=== PATIENT | female | born 1960 | race Caucasian/White ===

== ENCOUNTER → 2019-09-06 | Outpatient (CLI) | payer OTHER ==
--- NOTE | 2019-09-06 11:11 | XR ---
EXAMINATION TYPE: XR shoulder complete RT, XR humerus RT DATE OF EXAM: 09/06/2019 CLINICAL HISTORY: Sudden pain. TECHNIQUE: Three views of the right shoulder are obtained. 2 views right humerus. COMPARISON: None. FINDINGS: Demineralization is present. There is no acute fracture/dislocation evident in the right sh oulder. Mild to moderate narrowing at the acromioclavicular and glenohumeral joints. No significant spurring. Distal acromion morphology unremarkable. The visualized ribs are intact and unremarkable. Images of right humerus show no acute fracture. No suspicious lytic or sclerotic lesion. Overlying so ft tissue are unremarkable. Visualized elbow joint within normal limits. IMPRESSION: As above.
== END | disposition home or self-care (01) ==
LOC: RADXRMAIN 09:54
PROVIDERS: ATTEND Family Medicine
DX: M25.811 Other specified joint disorders, right shoulder (principal)

== ENCOUNTER → 2020-02-05 | Outpatient (CLI) | payer OTHER ==
--- NOTE | 2020-02-05 23:55 | MR ---
EXAMINATION TYPE: MR shoulder RT wo con DATE OF EXAM: 02/05/2020 COMPARISON: None HISTORY: Right shoulder pain. Multiplanar multiecho imaging of the right shoulder was performed with no contrast. The biceps tendon is intact. Subscapularis tendon is intact Radha appear intact. There is no evidence of a fracture. There is no subacromial impingement. AC join t is intact. There is thickening and increased signal at the supraspinatus tendon. There is no retraction. There a ppears to be full-thickness defect in the supraspinatus tendon on image 13 of the T2 coronal images. Humeral head is intact. I see no focal bone destruction. IMPRESSION: Thickening and increased signal in the supraspinatus tendon with full-thickness defect related to rot ator cuff tear. No retraction. No fracture. No evidence of any significant subacromial impingement.
== END | disposition home or self-care (01) ==
LOC: RADMRIMAIN 20:55
PROVIDERS: ATTEND Family Medicine
DX: R93.7 Abnormal findings on diagnostic imaging of other parts of musculoskeletal system (principal)

== ENCOUNTER 2020-03-01 21:51 | Observation (INO) | payer OTHER ==
[2020-03-01] MEDS ORDERED: methylPREDNISolone SOD SUCCI 125 MG/2 ML VIAL IV STA (22:20)
[2020-03-01] MEDS ORDERED: ALBUTEROL HFA INHALER INHALATION STA (22:20)
[2020-03-01] MEDS ORDERED: SODIUM CHLORIDE 0.9% 1,000 ML IV STA (22:20)
[2020-03-01] MEDS ORDERED: ONDANSETRON 4 MG/2 ML VIAL IVP STA (22:21)
--- NOTE | 2020-03-01 22:35 | XR ---
EXAMINATION TYPE: XR chest 2V DATE OF EXAM: 03/01/2020 COMPARISON: NONE HISTORY: Vomiting. Difficulty breathing. TECHNIQUE: 2 views FINDINGS: Heart and mediastinum are normal. Lungs are clear. Diaphragm is normal. Bony thorax appears normal. IMPRESSION: Normal chest.
[2020-03-01 22:36] LABS: Basophils # (A) 0.1 k/uL (0-0.2); Basophils % (A) 1 %; Eosinophils # (A) 0.1 k/uL (0-0.7); Eosinophils % (A) 1 %; HCT 45.4 % (34.0-46.0); HGB 15.3 gm/dL (11.4-16.0); Lymphocytes # (A) 2.4 k/uL (1.0-4.8); Lymphocytes % (A) 30 %; MCH 32.3 pg (25.0-35.0); MCHC 33.7 g/dL (31.0-37.0); MCV 96.1 fL (80.0-100.0); Mean Platelet Volume 8.4; Monocytes # (A) 0.5 k/uL (0-1.0); Monocytes % (A) 6 %; Neutrophils # (A) 4.9 k/uL (1.3-7.7); Neutrophils % (A) 61 %; Platelet Count 253 k/uL (150-450); RBC 4.72 m/uL (3.80-5.40); RDW 12.7 % (11.5-15.5); WBC 7.9 k/uL (3.8-10.6)
[2020-03-01 22:47] LABS: INR 0.9 (<1.2); Partial Thromboplastin Time 26.5 sec (22.0-30.0); Prothrombin Time 10.1 sec (9.0-12.0)
[2020-03-01 22:48] LABS: Albumin 4.4 g/dL (3.5-5.0); Calcium 9.8 mg/dL (8.4-10.2); Magnesium 1.8 mg/dL (1.6-2.3); Potassium 3.6 mmol/L (3.5-5.1); Total Bilirubin 0.4 mg/dL (0.2-1.3); Total Protein 7.2 g/dL (6.3-8.2)
--- NOTE | 2020-03-01 23:09 | ED ---
General Adult HPI - General Chief complaint: Shortness of Breath Stated complaint: SOB,Vomiting Time Seen by Provider: 03/01/20 22:08 Source: patient Mode of arrival: wheelchair Limitations: no limitations - History of Present Illness Initial comments: 59 year-old female patient presents to the emergency department for evaluation of shortness of breath, nausea, vomiting, and diarrhea. Symptoms have been present for the last two days. She denies fever or chills. Denies any chest pain or abdominal pain. States that she has had cough with sputum production. Increased shortness of breath especially with activity. She reports vomiting for the last two days, unable to keep down any food or fluids. She does admit to smoking cigarettes. Reports history of chronic bronchitis, not currently on any medications. She denies cardiac disease history. Denies any swelling in her lower extremities. Patient denies any recent rash, constipation, back pain, numbness, tingling, dizziness, weakness, hematuria, dysuria, urinary urgency, urinary frequency, headache, visual changes, or any other complaints. - Related Data Allergies Allergy/AdvReac Type Severity Reaction Status Date / Time cephalexin [From Keflex] Allergy Rash/Hives Verified 03/01/20 21:58 Penicillins Allergy Rash/Hives Verified 03/01/20 21:58 Review of Systems ROS Statement: Those systems with pertinent positive or pertinent negative responses have been documented in the HPI. ROS Other: All systems not noted in ROS Statement are negative. Past Medical History Past Medical History: GERD/Reflux, Hypertension History of Any Multi-Drug Resistant Organisms: None Reported Past Surgical History: Section, Cholecystectomy, Hysterectomy, Tonsillectomy Past Psychological History: Anxiety, Depression Smoking Status: Current every day smoker Past Alcohol Use History: None Reported Past Drug Use History: Marijuana General Exam Limitations: no limitations General appearance: alert, in no apparent distress, other (This is a well- developed, well-nourished adult female patient in no acute distress. Vital signs upon presentation are temperature 98.2F, pulse 103, respirations 26, blood pressure 130/80, pulse ox 92% on room air.) Eye exam: Present: normal appearance, PERRL, EOMI. Absent: scleral icterus, conjunctival injection, periorbital swelling ENT exam: Present: normal exam, normal oropharynx, mucous membranes moist Respiratory exam: Present: respiratory distress (mild), wheezes (Expiratory wheezing noted in the posterior lung quiñonez), other (Tachypnea). Absent: normal lung sounds bilaterally, rales, rhonchi, stridor, accessory muscle use Cardiovascular Exam: Present: normal rhythm, tachycardia, normal heart sounds. Absent: systolic murmur, diastolic murmur, rubs, gallop, clicks GI/Abdominal exam: Present: soft, normal bowel sounds. Absent: distended, tenderness, guarding, rebound, rigid Neurological exam: Present: alert, oriented X3, CN II-XII intact Psychiatric exam: Present: normal affect, normal mood Skin exam: Present: warm, dry, intact, normal color. Absent: rash Course Vital Signs 03/01/20 03/01/20 03/01/20 21:55 22:07 23:31 Temperature 98.3 F Pulse Rate 103 H 100 Respiratory 26 H 28 H Rate Blood Pressure 130/88 O2 Sat by Pulse 92 L Oximetry 03/01/20 03/01/20 23:32 23:37 Temperature Pulse Rate 72 104 H Respiratory 18 Rate Blood Pressure 110/71 O2 Sat by Pulse 100 Oximetry EKG Findings - EKG Comments: EKG Findings:: EKG obtained at 2211 shows sinus tachycardia. Ventricular rate of 105, [place] interval 150, QRS duration 66, QT 344, QTC 454. No evidence of ST elevation or depression. Medical Decision Making - Medical Decision Making 59-year-old female patient presents to the emergency department today for evaluation of shortness of breath and vomiting for the last 2 days. Upon arrival patient was tachypnea, with expiratory wheezing noted in the posterior lung quiñonez. She did have oxygen saturation at 92% on room air. She was tachycardic at 105. EKG showed sinus tachycardia. Chest x-ray was negative. She tested negative for COVID-19. Labs are unremarkable. She was given IV fluids and Zofran. She is also given breathing treatment and IV steroids. Upon reevaluation she reports minimal improvement in dyspnea. States remains slightly nauseated and reports dizziness. She'll be admitted to the hospital for further evaluation, continued breathing treatments and steroids. She is agreeable this plan. - Lab Data Result diagrams: 03/01/20 22:22 03/01/20 22:22 Lab Results 03/01/20 03/01/20 03/01/20 Range/Units 22:22 22:22 22:22 WBC 7.9 (3.8-10.6) k/uL RBC 4.72 (3.80-5.40) m/uL Hgb 15.3 (11.4-16.0) gm/dL Hct 45.4 (34.0-46.0) % MCV 96.1 (80.0-100.0) fL MCH 32.3 (25.0-35.0) pg MCHC 33.7 (31.0-37.0) g/dL RDW 12.7 (11.5-15.5) % Plt Count 253 (150-450) k/uL MPV 8.4 Neutrophils % 61 % Lymphocytes % 30 % Monocytes % 6 % Eosinophils % 1 % Basophils % 1 % Neutrophils # 4.9 (1.3-7.7) k/uL Lymphocytes # 2.4 (1.0-4.8) k/uL Monocytes # 0.5 (0-1.0) k/uL Eosinophils # 0.1 (0-0.7) k/uL Basophils # 0.1 (0-0.2) k/uL PT 10.1 (9.0-12.0) sec INR 0.9 (<1.2) APTT 26.5 (22.0-30.0) sec Sodium 141 (137-145) mmol/L Potassium 3.6 (3.5-5.1) mmol/L Chloride 113 H (98-107) mmol/L Carbon Dioxide 20 L (22-30) mmol/L Anion Gap 8 mmol/L BUN 20 H (7-17) mg/dL Creatinine 0.93 (0.52-1.04) mg/dL Est GFR (CKD-EPI)AfAm 78 (>60 ml/min/1.73 sqM) Est GFR (CKD-EPI)NonAf 68 (>60 ml/min/1.73 sqM) Glucose 142 H (74-99) mg/dL Plasma Lactic Acid Brayan (0.7-2.0) mmol/L Calcium 9.8 (8.4-10.2) mg/dL Magnesium 1.8 (1.6-2.3) mg/dL Total Bilirubin 0.4 (0.2-1.3) mg/dL AST 27 (14-36) U/L ALT 10 (4-34) U/L Alkaline Phosphatase 60 (38-126) U/L Troponin I (0.000-0.034) ng/mL Total Protein 7.2 (6.3-8.2) g/dL Albumin 4.4 (3.5-5.0) g/dL Coronavirus (PCR) (Not Detectd) 03/01/20 03/01/20 03/01/20 Range/Units 22:22 22:22 22:22 WBC (3.8-10.6) k/uL RBC (3.80-5.40) m/uL Hgb (11.4-16.0) gm/dL Hct (34.0-46.0) % MCV (80.0-100.0) fL MCH (25.0-35.0) pg MCHC (31.0-37.0) g/dL RDW (11.5-15.5) % Plt Count (150-450) k/uL MPV Neutrophils % % Lymphocytes % % Monocytes % % Eosinophils % % Basophils % % Neutrophils # (1.3-7.7) k/uL Lymphocytes # (1.0-4.8) k/uL Monocytes # (0-1.0) k/uL Eosinophils # (0-0.7) k/uL Basophils # (0-0.2) k/uL PT (9.0-12.0) sec INR (<1.2) APTT (22.0-30.0) sec Sodium (137-145) mmol/L Potassium (3.5-5.1) mmol/L Chloride (98-107) mmol/L Carbon Dioxide (22-30) mmol/L Anion Gap mmol/L BUN (7-17) mg/dL Creatinine (0.52-1.04) mg/dL Est GFR (CKD-EPI)AfAm (>60 ml/min/1.73 sqM) Est GFR (CKD-EPI)NonAf (>60 ml/min/1.73 sqM) Glucose (74-99) mg/dL Plasma Lactic Acid Brayan 1.1 (0.7-2.0) mmol/L Calcium (8.4-10.2) mg/dL Magnesium (1.6-2.3) mg/dL Total Bilirubin (0.2-1.3) mg/dL AST (14-36) U/L ALT (4-34) U/L Alkaline Phosphatase (38-126) U/L Troponin I <0.012 (0.000-0.034) ng/mL Total Protein (6.3-8.2) g/dL Albumin (3.5-5.0) g/dL Coronavirus (PCR) Not Detected (Not Detectd) - Radiology Data Radiology results: report reviewed, image reviewed Two-view x-ray of the chest is obtained. Report is reviewed in its entirety. Impression by Dr. Gao shows normal chest. Disposition Clinical Impression: COPD exacerbation, Vomiting Disposition: ADMITTED IP TO THIS [facility] Condition: Serious Referrals: Anne-Marie Gordon MD [Primary Care Provider] - 1-2 days Decision to Admit Reason: Admit from EC Decision Date: 03/01/20 Decision Time: 23:57
[2020-03-01] MEDS ORDERED: ALBUTEROL NEB (CONC) 2.5 MG/0.5 ML INHALATION STA (23:11)
[2020-03-01] MEDS ORDERED: IPRATROPIUM-ALBUTEROL 3 ML NEB INHALATION STA (23:11)
[2020-03-01] MEDS ORDERED: IPRATROPIUM-ALBUTEROL 3 ML NEB INHALATION PRN (23:55)
[2020-03-02] MEDS: methylPREDNISolone SOD SUCCI 125 MG/2 ML VIAL IV SCH ×3 (02:06→13:25)
[2020-03-02] MEDS: SODIUM CHLORIDE 0.9% 1,000 ML IV SCH ×2 (05:29→13:37)
[2020-03-02] MEDS: IPRATROPIUM-ALBUTEROL 3 ML NEB INHALATION SCH ×4 (08:25→20:15)
[2020-03-02] MEDS: ONDANSETRON 4 MG/2 ML VIAL IVP PRN ×2 (09:09→20:50)
[2020-03-02] MEDS ORDERED: ONDANSETRON ODT 4 MG TAB PO PRN (13:02)
[2020-03-02] MEDS ORDERED: BACLOFEN 10 MG TAB PO PRN (13:02)
[2020-03-02] MEDS ORDERED: NON FORMULARY DRUG (Omeprazole Magnesium [Prilosec Otc] 20 MG Tablet.Dr) PO SCH (13:15)
[2020-03-02] MEDS: PANTOPRAZOLE 40 MG/10 ML VIAL IVP SCH ×2 (13:34→22:11)
[2020-03-02] MEDS: busPIRone HCl 10 MG TAB PO SCH (13:34)
[2020-03-02] MEDS: DICYCLOMINE 20 MG TAB PO SCH ×2 (13:34→22:11)
--- NOTE | 2020-03-02 14:36 | P.HPIM ---
History of Present Illness Patient came in with compensative or shortness of breath nausea vomiting diarrhea and generalized body aches fever chills. Patient was initially believed to have Covid, although PCR is negative chest x-ray did not show any significant abnormality chest x-ray is clear. Patient does have nicotine abuse history does have history of COPD as an use any oxygen at home. Patient was comparing of her sputum production but it was clear. Patient was started on IV steroids which will be switched to oral patient does have extensive history of gastroesophageal reflux disease and severe esophagitis. Patient is presently requiring minimal oxygen at this time saturating well. Review of Systems REVIEW OF SYSTEMS: CONSTITUTIONAL: No fever, no malaise, no fatigue. HEENT: No recent visual problems or hearing problems. Denied any sore throat. CARDIOVASCULAR: No chest pain, orthopnea, PND, no palpitations, no syncope. PULMONARY: no hemoptysis. GASTROINTESTINAL: No diarrhea, no nausea, no vomiting, no abdominal pain. NEUROLOGICAL: No headaches, no weakness, no numbness. HEMATOLOGICAL: Denies any bleeding or petechiae. GENITOURINARY: Denies any burning micturition, frequency, or urgency. MUSCULOSKELETAL/RHEUMATOLOGICAL: Denies any joint pain, swelling, or any muscle pain. ENDOCRINE: Denies any polyuria or polydipsia. The rest of the 14-point review of systems is negative. Past Medical History Past Medical History: GERD/Reflux, Hypertension History of Any Multi-Drug Resistant Organisms: None Reported Past Surgical History: Section, Cholecystectomy, Hysterectomy, Tonsillectomy Past Anesthesia/Blood Transfusion Reactions: No Reported Reaction Past Psychological History: Anxiety, Depression Smoking Status: Current every day smoker Past Alcohol Use History: None Reported Past Drug Use History: Marijuana Medications and Allergies Home Medications Medication Instructions Recorded Confirmed Type Atorvastatin Calcium [Lipitor] 10 mg PO DAILY 03/02/20 03/02/20 History Baclofen [Lioresal] 10 mg PO TID PRN 03/02/20 03/02/20 History Dicyclomine HCl 20 mg PO TID 03/02/20 03/02/20 History Ergocalciferol (Vitamin D2) 1,250 mcg PO MO 03/02/20 03/02/20 History [Vitamin D2 (50,000 units)] Fenofibrate Nanocrystallized 145 mg PO DAILY 03/02/20 03/02/20 History [Fenofibrate] Losartan Potassium [Cozaar] 25 mg PO DAILY 03/02/20 03/02/20 History Omeprazole Magnesium [PriLOSEC OTC] 20 mg PO QAM 03/02/20 03/02/20 History Ondansetron [Zofran ODT] 4 mg PO Q12HR PRN 03/02/20 03/02/20 History Pramipexole [Mirapex] 0.125 mg PO HS 03/02/20 03/02/20 History busPIRone HCl [Buspar] 10 mg PO Q8H 03/02/20 03/02/20 History Allergies Allergy/AdvReac Type Severity Reaction Status Date / Time cephalexin [From Keflex] Allergy Rash/Hives Verified 03/02/20 09:27 Penicillins Allergy Rash/Hives Verified 03/02/20 09:27 Physical Exam Vitals: Vital Signs Temp Pulse Pulse Resp BP BP Pulse Ox 03/02/20 11:42 97.4 F L 59 L 17 99/65 96 03/02/20 11:25 88 03/02/20 11:17 88 03/02/20 10:24 95/62 03/02/20 08:35 92 03/02/20 08:26 92 03/02/20 08:25 90 16 03/02/20 05:34 91/54 03/02/20 04:03 97.6 F 90 16 71/40 98 03/02/20 02:00 97.9 F 84 16 95/62 97 03/01/20 23:37 104 H 03/01/20 23:32 72 18 110/71 100 03/01/20 23:31 100 03/01/20 22:07 28 H 03/01/20 21:55 98.3 F 103 H 26 H 130/88 92 L Intake and Output 03/01/20 03/02/20 03/02/20 22:59 06:59 14:59 Intake Total 300 Balance 300 Intake: Intake, IV Titration 300 Amount Sodium Chloride 0.9% 1, 300 000 ml @ 100 mls/hr IV . Q10H [facility] Rx#:[id number] Other: Voiding Method Toilet # Voids 1 1 Weight 55.338 kg 55.338 kg PHYSICAL EXAMINATION: GENERAL: The patient is alert and oriented x3, not in any acute distress. Well developed, well nourished. HEENT: Pupils are round and equally reacting to light. EOMI. No scleral icterus. No conjunctival pallor. Normocephalic, atraumatic. No pharyngeal erythema. No thyromegaly. CARDIOVASCULAR: S1 and S2 present. No murmurs, rubs, or gallops. PULMONARY: Bilateral rhonchi with mild expiratory wheezing. ABDOMEN: Soft, nontender, nondistended, normoactive bowel sounds. No palpable organomegaly. MUSCULOSKELETAL: No joint swelling or deformity. EXTREMITIES: No cyanosis, clubbing, or pedal edema. NEUROLOGICAL: Gross neurological examination did not reveal any focal deficits. SKIN: No rashes. Results CBC & Chem 7: 03/01/20 22:22 03/01/20 22:22 Labs: Abnormal Lab Results - Last 24 Hours (Table) 03/01/20 Range/Units 22:22 Chloride 113 H (98-107) mmol/L Carbon Dioxide 20 L (22-30) mmol/L BUN 20 H (7-17) mg/dL Glucose 142 H (74-99) mg/dL Thrombosis Risk Factor Assmnt - Choose All That Apply Any of the Below Risk Factors Present?: Yes Each Factor Represents 1 point: Abnormal pulmonary function (COPD), Age 41-60 years Each Risk Factor Represents 2 Points: Age 61-74 years Thrombosis Risk Factor Assessment Total Risk Factor Score: 4 Thrombosis Risk Factor Assessment Level: Moderate Risk Assessment and Plan Plan: -COPD exacerbation: Nicotine cessation counseling was provided patient will be continued on oral prednisone and continue with inhalational treatments. No evidence of Bactrim bronchitis patient will not be started on any antibiotics. -Severe gastroesophageal reflux disease and esophagitis patient will be started on Protonix twice daily -Nausea vomiting the diarrhea and generalized body aches probably viral gastroenteritis -Hypertension -Depression -DVT prophylaxis: Early ambulation
--- NOTE | 2020-03-02 14:42 | P.CNPUL ---
History of Present Illness Consult date: 03/02/20 Requesting physician: Wil Weir Reason for consult: dyspnea, cough, COPD Chief complaint: Shortness of breath. History of present illness: 59-year-old female who presented to the emergency department on March 01 at 2151. The patient presented with shortness of breath. She apparently been having shortness of breath for some time. Maybe for 2 or 3 days prior to admission and it wasn't getting any better. In addition, according to the ER rocío, she was having nausea, vomiting, and diarrhea. She denied any fever or chills or chest pain or abdominal pain. She was coughing and producing some phlegm. Her shortness of breath was worse on exertion. She apparently was not able to keep any food or fluids down for 2 days prior to admission. She is a heavy smoker having smoked for more than 40 years. She currently still smokes. She has never seen a lung doctor, and never been formally diagnosed with COPD. She denies any cardiac history. Currently, she is resting comfortably in her room, on a couple of liters of nasal O2. She's feeling a bit better than she did when she first came in. Still very short of breath. Her vital signs included temperature 97.4, heart rate 59, respiratory rate 17, blood pressure 99/65, and a saturation of 96% on 2 L. Her chest x-ray is negative. She apparently has a history of gastroesophageal reflux disease, and hypertension. She is a current every day smoker and has used marijuana in the past. She also suffers from hyperlipidemia, anxiety, depression, and vitamin D deficiency. Review of Systems REVIEW OF SYSTEMS: CONSTITUTIONAL: [Negative.] NEUROLOGIC: [ Negative.] HEENT: [ Negative.] CARDIAC: [Negative.] PULMONARY: Shortness of breath, wheezing, cough, phlegm production. GI: Nausea, vomiting, diarrhea. : [Negative.] RHEUMATOLOGIC: [ Negative.] IMMUNOLOGIC: [ Negative.] ENDOCRINE: [Negative. ] DERMATOLOGIC: [Negative.] Past Medical History Past Medical History: GERD/Reflux, Hypertension History of Any Multi-Drug Resistant Organisms: None Reported Past Surgical History: Section, Cholecystectomy, Hysterectomy, Tonsillectomy Past Anesthesia/Blood Transfusion Reactions: No Reported Reaction Past Psychological History: Anxiety, Depression Smoking Status: Current every day smoker Past Alcohol Use History: None Reported Past Drug Use History: Marijuana Medications and Allergies Home Medications Medication Instructions Recorded Confirmed Type Atorvastatin Calcium [Lipitor] 10 mg PO DAILY 03/02/20 03/02/20 History Baclofen [Lioresal] 10 mg PO TID PRN 03/02/20 03/02/20 History Dicyclomine HCl 20 mg PO TID 03/02/20 03/02/20 History Ergocalciferol (Vitamin D2) 1,250 mcg PO MO 03/02/20 03/02/20 History [Vitamin D2 (50,000 units)] Fenofibrate Nanocrystallized 145 mg PO DAILY 03/02/20 03/02/20 History [Fenofibrate] Losartan Potassium [Cozaar] 25 mg PO DAILY 03/02/20 03/02/20 History Omeprazole Magnesium [PriLOSEC OTC] 20 mg PO QAM 03/02/20 03/02/20 History Ondansetron [Zofran ODT] 4 mg PO Q12HR PRN 03/02/20 03/02/20 History Pramipexole [Mirapex] 0.125 mg PO HS 03/02/20 03/02/20 History busPIRone HCl [Buspar] 10 mg PO Q8H 03/02/20 03/02/20 History Allergies Allergy/AdvReac Type Severity Reaction Status Date / Time cephalexin [From Keflex] Allergy Rash/Hives Verified 03/02/20 09:27 Penicillins Allergy Rash/Hives Verified 03/02/20 09:27 Physical Exam Osteopathic Statement: *. No significant issues noted on an osteopathic structural exam other than those noted in the History and Physical/Consult. Vitals: Vital Signs Temp Pulse Pulse Resp BP BP Pulse Ox 03/02/20 11:42 97.4 F L 59 L 17 99/65 96 03/02/20 11:25 88 03/02/20 11:17 88 03/02/20 10:24 95/62 03/02/20 08:35 92 03/02/20 08:26 92 03/02/20 08:25 90 16 03/02/20 05:34 91/54 03/02/20 04:03 97.6 F 90 16 71/40 98 03/02/20 02:00 97.9 F 84 16 95/62 97 03/01/20 23:37 104 H 03/01/20 23:32 72 18 110/71 100 03/01/20 23:31 100 03/01/20 22:07 28 H 03/01/20 21:55 98.3 F 103 H 26 H 130/88 92 L Intake and Output 03/01/20 03/02/20 03/02/20 22:59 06:59 14:59 Intake Total 300 Balance 300 Intake: Intake, IV Titration 300 Amount Sodium Chloride 0.9% 1, 300 000 ml @ 100 mls/hr IV . Q10H [facility] Rx#:[id number] Other: Voiding Method Toilet # Voids 1 1 Weight 55.338 kg 55.338 kg No acute respiratory distress, oriented 3. The patient is currently on O2 at 2 L by nasal cannula. HEENT examination is grossly unremarkable. Mucous membranes are moist. No oral lesions. Neck supple. Full range of motion. No adenopathy thyromegaly or neck vein distention. Cardiovascular examination reveals regular rhythm rate. S1-S2 normal. No S3 or S4. No discernible murmur noted. Heart rate is 88 bpm. Lungs reveal diminished bilateral breath sounds. There are diffuse expiratory wheezes and rhonchi. No crackles. Slight prolongation on forced maneuver. Abdomen soft bowel sounds are heard. No masses or tenderness. Extremities are intact. No cyanosis clubbing or edema. Skin is without rash or lesion. Neurologic examination is brief but nonfocal. Results - Laboratory Findings CBC and BMP: 03/01/20 22:22 03/01/20 22:22 PT/INR, D-dimer PT 10.1 sec (9.0-12.0) 03/01/20 22:22 INR 0.9 (<1.2) 03/01/20 22:22 Abnormal lab findings: Abnormal Labs 03/01/20 22:22 Chloride 113 H Carbon Dioxide 20 L BUN 20 H Glucose 142 H - Diagnostic Findings Chest x-ray: image reviewed Assessment and Plan Assessment: Acute hypoxemic respiratory failure, secondary to COPD exacerbation. Ongoing tobacco use with nicotine addiction, having smoked for more than 40 years. History of hypertension. Her wrap history of hyperlipidemia. History of gastroesophageal reflux disease. History of anxiety and depression. History of nausea, vomiting, and diarrhea. Plan: Plan dated 03/02/2020. The patient should be on albuterol sulfate, and ipratropium bromide, 4 times a day and when necessary. In addition, the patient should be on Pulmicort 1 mg, and Perforomist 20 g, twice a day. Finally, the patient should be on Solu- Medrol 40-60 mg IV push, every 6 hours, and an oral antibiotic. If she is unable to tolerate an oral antibiotic, one can be given IV. Additional recommendations and suggestions are forthcoming. The patient should also be placed on a 21 mg nicotine patch. She's counseled about the importance of smoking cessation. We will continue to follow. She will need outpatient evaluation and complete pulmonary function test. Time with Patient: Greater than 30
[2020-03-02] MEDS: methylPREDNISolone SOD SUCCI 40 MG/ML 1 ML VIAL IV SCH (18:17)
[2020-03-02] MEDS ORDERED: BUDESONIDE 0.5 MG/2 ML NEBU INHALATION SCH (20:00)
[2020-03-02] MEDS: BUDESONIDE 1 MG/2 ML NEBU INHALATION SCH (20:14)
[2020-03-02] MEDS: FORMOTEROL FUMARATE 20 MCG/2 ML NEBU INHALATION SCH (20:15)
[2020-03-02] MEDS ORDERED: methylPREDNISolone SOD SUCCI 125 MG/2 ML VIAL IV SCH (21:00)
[2020-03-02] MEDS ORDERED: PRAMIPEXOLE 0.125 MG TAB PO SCH (21:00)
[2020-03-03] MEDS: busPIRone HCl 10 MG TAB PO SCH ×2 (00:34→07:33)
[2020-03-03] MEDS: methylPREDNISolone SOD SUCCI 40 MG/ML 1 ML VIAL IV SCH ×2 (00:34→05:36)
[2020-03-03] MEDS: SODIUM CHLORIDE 0.9% 1,000 ML IV SCH (05:36)
[2020-03-03] MEDS: SODIUM CHLORIDE 0.9% 250 ML IV SCH ×7 (05:37→07:32)
[2020-03-03] MEDS ORDERED: ACETAMINOPHEN TAB 325 MG TAB PO PRN (05:42)
[2020-03-03] MEDS: FORMOTEROL FUMARATE 20 MCG/2 ML NEBU INHALATION SCH (07:16)
[2020-03-03] MEDS: IPRATROPIUM-ALBUTEROL 3 ML NEB INHALATION SCH ×2 (07:16→11:18)
[2020-03-03] MEDS: BUDESONIDE 1 MG/2 ML NEBU INHALATION SCH (07:16)
[2020-03-03] MEDS: PANTOPRAZOLE 40 MG/10 ML VIAL IVP SCH (07:30)
[2020-03-03] MEDS: DICYCLOMINE 20 MG TAB PO SCH (07:33)
[2020-03-03] MEDS ORDERED: LOSARTAN 25 MG TAB PO SCH (09:00)
[2020-03-03] MEDS ORDERED: NICOTINE 21MG/24HR PATCH TRANSDERM SCH (09:00)
[2020-03-03] MEDS ORDERED: predniSONE 20 MG TAB PO SCH (09:00)
[2020-03-03] MEDS ORDERED: ATORVASTATIN 10 MG TAB PO SCH (09:00)
[2020-03-03] MEDS ORDERED: FENOFIBRATE 160 MG TAB PO SCH (09:00)
[2020-03-03 11:02] VITALS: BP 113/72; PULSE 82; RESP 18; TEMP 97.5
--- NOTE | 2020-03-03 12:07 | P.DS ---
Providers Date of admission: 03/02/20 00:13 Attending physician: Maddy Myrick Consults: 03/01/20 23:55 Consult Physician Routine Consulting Provider: Darron Donaldson Consult Reason/Comments: COPD exacerbation Do you want consulting provider notified?: Yes Primary care physician: Anne-Marie Gordon MD Hospital Course: Patient came in with compensative or shortness of breath nausea vomiting diarrhe a and generalized body aches fever chills. Patient was initially believed to have Covid, although PCR is negative chest x-ray did not show any significant abnormality chest x-ray is clear. Patient does have nicotine abuse history does have history of COPD as an use any oxygen at home. Patient was comparing of her sputum production but it was clear. Patient was started on IV steroids which will be switched to oral patient does have extensive history of gastroesophageal reflux disease and severe esophagitis. Patient is presently requiring minimal oxygen at this time saturating well. 03/03/2020 Patient is not requiring oxygen saturating well without oxygen on ambulation although still comparing of some shortness of breath patient will be discharged on the systemic steroids inhalational treatments. Patient doesn't have any more symptoms of diarrhea or nausea vomiting. PHYSICAL EXAMINATION: GENERAL: The patient is alert and oriented x3, not in any acute distress. Well developed, well nourished. HEENT: Pupils are round and equally reacting to light. EOMI. No scleral icterus. No conjunctival pallor. Normocephalic, atraumatic. No pharyngeal erythema. No thyromegaly. CARDIOVASCULAR: S1 and S2 present. No murmurs, rubs, or gallops. PULMONARY: good air entry into bilateral lung fieldssignificant wheezing wheezing completely resolved compared to yesterday ABDOMEN: Soft, nontender, nondistended, normoactive bowel sounds. No palpable organomegaly. MUSCULOSKELETAL: No joint swelling or deformity. EXTREMITIES: No cyanosis, clubbing, or pedal edema. NEUROLOGICAL: Gross neurological examination did not reveal any focal deficits. SKIN: No rashes. Assessment and Plan Plan: -COPD exacerbation: Nicotine cessation counseling was provided patient will be continued on oral prednisone -Severe gastroesophageal reflux disease and esophagitis patient will be continued on home dose of Prilosec -Nausea vomiting the diarrhea and generalized body aches probably viral gastroenteritis -Hypertension -Depression Patient Condition at Discharge: Serious Plan - Discharge Summary Discharge Rx Participant: Yes New Discharge Prescriptions: New Fluticasone/Salmeterol [Advair 250-50 Diskus] 1 inhalation PO BID #1 inhaler Doxycycline Monohydrate [Monodox] 100 mg PO Q12HR #6 cap predniSONE 10 mg PO DAILY #30 tab Tiotropium [place] [Spiriva] 1 cap INHALATION DAILY #1 device Albuterol Inhaler [Ventolin Hfa Inhaler] 2 puff INHALATION RT-QID PRN #1 inhaler PRN Reason: Shortness Of Breath Or Wheezing Discontinued Losartan Potassium [Cozaar] 25 mg PO DAILY No Action Pramipexole [Mirapex] 0.125 mg PO HS Ergocalciferol (Vitamin D2) [Vitamin D2 (50,000 units)] 1,250 mcg PO MO Ondansetron [Zofran ODT] 4 mg PO Q12HR PRN PRN Reason: Nausea And Vomiting Omeprazole Magnesium [PriLOSEC OTC] 20 mg PO QAM Fenofibrate Nanocrystallized [Fenofibrate] 145 mg PO DAILY Dicyclomine HCl 20 mg PO TID Baclofen [Lioresal] 10 mg PO TID PRN PRN Reason: Spasms Atorvastatin Calcium [Lipitor] 10 mg PO DAILY busPIRone HCl [Buspar] 10 mg PO Q8H Discharge Medication List Atorvastatin Calcium [Lipitor] 10 mg PO DAILY 03/02/20 [History] Baclofen [Lioresal] 10 mg PO TID PRN 03/02/20 [History] Dicyclomine HCl 20 mg PO TID 03/02/20 [History] Ergocalciferol (Vitamin D2) [Vitamin D2 (50,000 units)] 1,250 mcg PO MO 03/02/20 [History] Fenofibrate Nanocrystallized [Fenofibrate] 145 mg PO DAILY 03/02/20 [History] Omeprazole Magnesium [PriLOSEC OTC] 20 mg PO QAM 03/02/20 [History] Ondansetron [Zofran ODT] 4 mg PO Q12HR PRN 03/02/20 [History] Pramipexole [Mirapex] 0.125 mg PO HS 03/02/20 [History] busPIRone HCl [Buspar] 10 mg PO Q8H 03/02/20 [History] Albuterol Inhaler [Ventolin Hfa Inhaler] 2 puff INHALATION RT-QID PRN #1 inhaler 03/03/20 [Rx] Doxycycline Monohydrate [Monodox] 100 mg PO Q12HR #6 cap 03/03/20 [Rx] Fluticasone/Salmeterol [Advair 250-50 Diskus] 1 inhalation PO BID #1 inhaler 03/03/20 [Rx] Tiotropium [place] [Spiriva] 1 cap INHALATION DAILY #1 device 03/03/20 [Rx] predniSONE 10 mg PO DAILY #30 tab 03/03/20 [Rx] Follow up Appointment(s)/Referral(s): Darrno Donaldson DO [Doctor of Osteopathic Medicine] - 1 Week Anne-Marie Gordon MD [Primary Care Provider] - 3 Days Patient Instructions/Handouts: Doxycycline (By mouth), Albuterol (By breathing), Prednisone (By mouth), Fluticasone/Salmeterol (By breathing), Tiotropium (By breathing) Activity/Diet/Wound Care/Special Instructions: diet as tolerated limit activity until seen by On Wednesday morning call to schedule appointments with DR's Discharge Disposition: HOME SELF-CARE
--- NOTE | 2020-03-03 14:54 | P.PN ---
Subjective Progress Note Date: 03/03/20 Principal diagnosis: COPD exacerbation 59-year-old female who presented to the emergency department on March 01 at 2151. The patient presented with shortness of breath. She apparently been having shortness of breath for some time. Maybe for 2 or 3 days prior to admission and it wasn't getting any better. In addition, according to the ER rocío, she was having nausea, vomiting, and diarrhea. She denied any fever or chills or chest pain or abdominal pain. She was coughing and producing some phlegm. Her shortness of breath was worse on exertion. She apparently was not able to keep any food or fluids down for 2 days prior to admission. She is a heavy smoker having smoked for more than 40 years. She currently still smokes. She has never seen a lung doctor, and never been formally diagnosed with COPD. She denies any cardiac history. Currently, she is resting comfortably in her room, on a couple of liters of nasal O2. She's feeling a bit better than she did when she first came in. Still very short of breath. Her vital signs included temperature 97.4, heart rate 59, respiratory rate 17, blood pressure 99/65, and a saturation of 96% on 2 L. Her chest x-ray is negative. She apparently has a history of gastroesophageal reflux disease, and hypertension. She is a current every day smoker and has used marijuana in the past. She also suffers from hyperlipidemia, anxiety, depression, and vitamin D deficiency. The patient is seen today 03/03/2020 follow-up on the regular medical floor. She is up ambulating in her room. Awake and alert in no acute distress. Her breathing is nearly back to her baseline. She is currently maintaining good O2 saturation in the mid 90s on room air. She's afebrile. Hemodynamically stable. She is continued on DuoNeb inhalations, Pulmicort and Perforomist inhalations, IV Solu-Medrol, NicoDerm patch is in place. Objective - Vital Signs Vital signs: Vital Signs Temp 97.5 F L 03/03/20 11:00 Pulse 82 03/03/20 11:00 Resp 18 03/03/20 11:00 BP 113/72 03/03/20 11:00 Pulse Ox 98 03/03/20 11:17 Intake & Output 03/02/20 03/03/2021 18:59 06:59 18:59 Intake Total 240 Balance 240 Intake: Oral 240 Other: Voiding Method Toilet Toilet # Voids 2 2 - Exam GENERAL EXAM: Alert, active, 59-year-old female patient, on room air, comfortable in no apparent distress. HEAD: Normocephalic. EYES: Normal reaction of pupils, equal size. NOSE: Clear with pink turbinates. THROAT: No erythema or exudates. NECK: No masses, no JVD. CHEST: No chest wall deformity. LUNGS: Equal air entry with faint end extremities, diminished CVS: S1 and S2 normal with no audible murmur, regular rhythm. ABDOMEN: No hepatosplenomegaly, normal bowel sounds, no guarding or rigidity. SPINE: No scoliosis or deformity SKIN: No rashes CENTRAL NERVOUS SYSTEM: No focal deficits, tone is normal in all 4 extremities. EXTREMITIES: There is no peripheral edema. No clubbing, no cyanosis. Peripheral pulses are intact. - Labs CBC & Chem 7: 03/01/20 22:22 03/01/20 22:22 Assessment and Plan Assessment: 1 Acute hypoxemic respiratory failure secondary to an acute exacerbation of chronic obstructive pulmonary disease 2 Chronic and ongoing tobacco dependence of greater than 40 years 3 Hypertension 4 Hyperlipidemia 5 Gastroesophageal reflux disease 6 Anxiety/depression Plan: The patient was seen and evaluated by Dr. Donaldson She is cleared for discharge from the pulmonary standpoint Continue bronchodilators, complete a prednisone burst and taper Follow-up in the office in 1-2 weeks' time I, the cosigning physician, performed a history & physical examination of the patient. Lungs sounds with end-expiratory wheeze, diminished. Maintaining good O2 saturations in the 90s on room air. I discussed the assessment and plan of care with my nurse practitioner, Perlita Muñoz. I attest to the above note as dictated by her.
== END 2020-03-03 13:18 | disposition home or self-care (01) ==
LOC: EC 21:51 → 6NMEDSUR 03-02 00:13
PROVIDERS: ADMIT Internal Medicine; ATTEND Internal Medicine
DX: J44.1 Chronic obstructive pulmonary disease with (acute) exacerbation (principal); Z20.828 Contact with and (suspected) exposure to other viral communicable diseases; F17.210 Nicotine dependence, cigarettes, uncomplicated; R11.2 Nausea with vomiting, unspecified; R19.7 Diarrhea, unspecified; K21.00 Gastro-esophageal reflux disease with esophagitis, without bleeding; I10 Essential (primary) hypertension; Z98.891 History of uterine scar from previous surgery; Z90.49 Acquired absence of other specified parts of digestive tract; Z90.710 Acquired absence of both cervix and uterus; Z90.89 Acquired absence of other organs; F41.9 Anxiety disorder, unspecified; F32.9 Major depressive disorder, single episode, unspecified; E55.9 Vitamin D deficiency, unspecified; Z79.899 Other long term (current) drug therapy; Z88.1 Allergy status to other antibiotic agents; Z88.0 Allergy status to penicillin
CPT/HCPCS: 96376 ×2; 96375 ×2; 96361; 96374; 99285; 36415; 94640 ×3; 93005; 80053; 83605; 83735; 84484; 85025; 85610; 85730; 87635; 71046; G0378 ×2; J2920 ×2; J2930 ×2; J2405 ×2; C9113 ×2

== ENCOUNTER 2020-06-27 12:39 | Emergency (ER) | payer OTHER ==
[2020-06-27 12:59] VITALS: RESP 18; TEMP 98.4
--- NOTE | 2020-06-27 13:34 | ED ---
General Adult HPI - General Chief complaint: Extremity Problem,Nontraumatic Stated complaint: swelling Time Seen by Provider: 06/27/20 13:00 Source: patient, RN notes reviewed, old records reviewed Mode of arrival: ambulatory Limitations: no limitations - History of Present Illness Initial comments: This is a 60-year-old female with a past medical history significant for COPD. Patient comes into the emergency department stating that for the last 2 weeks she has swelling in her feet and ankles and legs as well as feeling some swelling in her arms and face. Patient states she's had no difficulty breathing shortness of breath or chest pain. Patient has any palpitations. Patient denies any recent fever chills or cough. Patient denies any abdominal pain patient denies nausea vomiting diarrhea. Patient states she has no pain anywhere she just feels as though she's becoming more more swollen. Patient states she tried a couple doses of Lasix but it didn't appear to help. - Related Data Home Medications Medication Instructions Recorded Confirmed Atorvastatin Calcium [Lipitor] 10 mg PO HS 03/02/20 06/27/20 Baclofen [Lioresal] 10 mg PO Q8H 03/02/20 06/27/20 Dicyclomine HCl 20 mg PO TID PRN 03/02/20 06/27/20 Ergocalciferol (Vitamin D2) 1,250 mcg PO MO 03/02/20 06/27/20 [Vitamin D2 (50,000 units)] Fenofibrate Nanocrystallized 145 mg PO DAILY 03/02/20 06/27/20 [Fenofibrate] Ondansetron [Zofran ODT] 4 mg PO Q12H PRN 03/02/20 06/27/20 Pramipexole [Mirapex] 0.125 mg PO HS 03/02/20 06/27/20 busPIRone HCl [Buspar] 10 mg PO Q8H 03/02/20 06/27/20 Albuterol Sulfate [Proair Hfa] 1 - 2 puff INHALATION RT-Q4H PRN 06/27/20 06/27/20 Escitalopram [Lexapro] 20 mg PO DAILY 06/27/20 06/27/20 Fluticasone/Salmeterol [Advair 1 puff INHALATION RT-BID 05/13/21 05/13/21 250-50 Diskus] Ibuprofen [Motrin] 800 mg PO Q12H PRN 06/27/20 06/27/20 Omeprazole 20 mg PO BID 06/27/20 06/27/20 Tiotropium [place] [Spiriva] 1 cap INHALATION RT-DAILY 06/27/20 06/27/20 Allergies Allergy/AdvReac Type Severity Reaction Status Date / Time cephalexin [From Keflex] Allergy Rash/Hives Verified 06/27/20 15:05 Penicillins Allergy Rash/Hives Verified 06/27/20 15:05 Review of Systems ROS Statement: Those systems with pertinent positive or pertinent negative responses have been documented in the HPI. ROS Other: All systems not noted in ROS Statement are negative. Past Medical History Past Medical History: GERD/Reflux, Hypertension History of Any Multi-Drug Resistant Organisms: None Reported Past Surgical History: Section, Cholecystectomy, Hysterectomy, Tonsillectomy Past Anesthesia/Blood Transfusion Reactions: No Reported Reaction Past Psychological History: Anxiety, Depression Smoking Status: Current every day smoker Past Alcohol Use History: None Reported Past Drug Use History: Marijuana General Exam - General Exam Comments Initial Comments: GENERAL: Patient is well-developed and well-nourished. Patient is nontoxic and well- hydrated and is in mild distress. ENT: Neck is soft and supple. No significant lymphadenopathy is noted. Oropharynx is clear. Moist mucous membranes. Neck has full range of motion without eliciting any pain. EYES: The sclera were anicteric and conjunctiva were pink and moist. Extraocular movements were intact and pupils were equal round and reactive to light. Eyelids were unremarkable. PULMONARY: Unlabored respirations. Good breath sounds bilaterally. No audible rales rhonchi or wheezing was noted. CARDIOVASCULAR: There is a regular rate and rhythm without any murmurs gallops or rubs. ABDOMEN: Soft and nontender with normal bowel sounds. SKIN: Skin is clear with no lesions or rashes and otherwise unremarkable. NEUROLOGIC: Patient is alert and oriented x3. Cranial nerves II through XII are grossly intact. Motor and sensory are also intact. Normal speech, volume and content. Symmetrical smile. MUSCULOSKELETAL: Normal extremities with adequate strength and full range of motion. 1+ bilaterally legs LYMPHATICS: No significant lymphadenopathy is noted PSYCHIATRIC: Normal psychiatric evaluation. Limitations: no limitations Course Vital Signs 05/13/21 05/13/21 05/13/21 12:55 13:59 14:00 Temperature 98.4 F Pulse Rate 76 66 69 Respiratory 18 18 18 Rate Blood Pressure 180/92 151/94 163/94 O2 Sat by Pulse 96 Oximetry 06/27/20 15:00 Temperature Pulse Rate 78 Respiratory 18 Rate Blood Pressure 165/97 O2 Sat by Pulse 99 Oximetry Medical Decision Making - Medical Decision Making EKG shows normal sinus rhythm at 69 bpm W[place] interval 246 dresses 70 QT interval 372 QTC is 398. Patient's EKG shows no ST segment elevation or depression. Chest x-ray shows no acute abnormality. Aside from a little edema in the legs there is no other complaints at this time. Patient will follow-up with a primary medical care doctor and start the Lasix that she was given that she has not been taking. - Lab Data Result diagrams: 06/27/20 13:52 06/27/20 13:52 Lab Results 06/27/20 06/27/20 06/27/20 Range/Units 13:52 13:52 13:52 WBC 6.7 (3.8-10.6) k/uL RBC 4.21 (3.80-5.40) m/uL Hgb 12.9 (11.4-16.0) gm/dL Hct 41.0 (34.0-46.0) % MCV 97.4 (80.0-100.0) fL MCH 30.6 (25.0-35.0) pg MCHC 31.5 (31.0-37.0) g/dL RDW 14.5 (11.5-15.5) % Plt Count 297 (150-450) k/uL MPV 8.3 Neutrophils % 70 % Lymphocytes % 23 % Monocytes % 5 % Eosinophils % 1 % Basophils % 0 % Neutrophils # 4.7 (1.3-7.7) k/uL Lymphocytes # 1.5 (1.0-4.8) k/uL Monocytes # 0.3 (0-1.0) k/uL Eosinophils # 0.1 (0-0.7) k/uL Basophils # 0.0 (0-0.2) k/uL PT 10.1 (9.0-12.0) sec INR 0.9 (<1.2) APTT 26.9 (22.0-30.0) sec Sodium (137-145) mmol/L Potassium (3.5-5.1) mmol/L Chloride (98-107) mmol/L Carbon Dioxide (22-30) mmol/L Anion Gap mmol/L BUN (7-17) mg/dL Creatinine (0.52-1.04) mg/dL Est GFR (CKD-EPI)AfAm (>60 ml/min/1.73 sqM) Est GFR (CKD-EPI)NonAf (>60 ml/min/1.73 sqM) Glucose (74-99) mg/dL Plasma Lactic Acid Brayan (0.7-2.0) mmol/L Calcium (8.4-10.2) mg/dL Magnesium (1.6-2.3) mg/dL Total Bilirubin (0.2-1.3) mg/dL AST (14-36) U/L ALT (4-34) U/L Alkaline Phosphatase (38-126) U/L Troponin I (0.000-0.034) ng/mL NT-Pro-B Natriuret Pep pg/mL Total Protein (6.3-8.2) g/dL Albumin (3.5-5.0) g/dL Urine Color Light Yellow Urine Appearance Clear (Clear) Urine pH 6.0 (5.0-8.0) Ur Specific [place] 1.017 (1.001-1.035) Urine Protein Negative (Negative) Urine Glucose (UA) Negative (Negative) Urine Ketones Negative (Negative) Urine Blood Negative (Negative) Urine Nitrite Negative (Negative) Urine Bilirubin Negative (Negative) Urine Urobilinogen <2.0 (<2.0) mg/dL Ur Leukocyte Esterase Trace H (Negative) Urine RBC <1 (0-5) /hpf Urine WBC 1 (0-5) /hpf Ur Squamous Epith Cells <1 (0-4) /hpf 06/27/20 06/27/20 06/27/20 Range/Units 13:52 13:52 13:52 WBC (3.8-10.6) k/uL RBC (3.80-5.40) m/uL Hgb (11.4-16.0) gm/dL Hct (34.0-46.0) % MCV (80.0-100.0) fL MCH (25.0-35.0) pg MCHC (31.0-37.0) g/dL RDW (11.5-15.5) % Plt Count (150-450) k/uL MPV Neutrophils % % Lymphocytes % % Monocytes % % Eosinophils % % Basophils % % Neutrophils # (1.3-7.7) k/uL Lymphocytes # (1.0-4.8) k/uL Monocytes # (0-1.0) k/uL Eosinophils # (0-0.7) k/uL Basophils # (0-0.2) k/uL PT (9.0-12.0) sec INR (<1.2) APTT (22.0-30.0) sec Sodium 139 (137-145) mmol/L Potassium 3.9 (3.5-5.1) mmol/L Chloride 109 H (98-107) mmol/L Carbon Dioxide 23 (22-30) mmol/L Anion Gap 7 mmol/L BUN 13 (7-17) mg/dL Creatinine 1.08 H (0.52-1.04) mg/dL Est GFR (CKD-EPI)AfAm 64 (>60 ml/min/1.73 sqM) Est GFR (CKD-EPI)NonAf 56 (>60 ml/min/1.73 sqM) Glucose 92 (74-99) mg/dL Plasma Lactic Acid Brayan 0.6 L (0.7-2.0) mmol/L Calcium 9.3 (8.4-10.2) mg/dL Magnesium 1.8 (1.6-2.3) mg/dL Total Bilirubin 0.3 (0.2-1.3) mg/dL AST 24 (14-36) U/L ALT 9 (4-34) U/L Alkaline Phosphatase 62 (38-126) U/L Troponin I <0.012 (0.000-0.034) ng/mL NT-Pro-B Natriuret Pep pg/mL Total Protein 6.3 (6.3-8.2) g/dL Albumin 3.8 (3.5-5.0) g/dL Urine Color Urine Appearance (Clear) Urine pH (5.0-8.0) Ur Specific [place] (1.001-1.035) Urine Protein (Negative) Urine Glucose (UA) (Negative) Urine Ketones (Negative) Urine Blood (Negative) Urine Nitrite (Negative) Urine Bilirubin (Negative) Urine Urobilinogen (<2.0) mg/dL Ur Leukocyte Esterase (Negative) Urine RBC (0-5) /hpf Urine WBC (0-5) /hpf Ur Squamous Epith Cells (0-4) /hpf 06/27/20 Range/Units 13:52 WBC (3.8-10.6) k/uL RBC (3.80-5.40) m/uL Hgb (11.4-16.0) gm/dL Hct (34.0-46.0) % MCV (80.0-100.0) fL MCH (25.0-35.0) pg MCHC (31.0-37.0) g/dL RDW (11.5-15.5) % Plt Count (150-450) k/uL MPV Neutrophils % % Lymphocytes % % Monocytes % % Eosinophils % % Basophils % % Neutrophils # (1.3-7.7) k/uL Lymphocytes # (1.0-4.8) k/uL Monocytes # (0-1.0) k/uL Eosinophils # (0-0.7) k/uL Basophils # (0-0.2) k/uL PT (9.0-12.0) sec INR (<1.2) APTT (22.0-30.0) sec Sodium (137-145) mmol/L Potassium (3.5-5.1) mmol/L Chloride (98-107) mmol/L Carbon Dioxide (22-30) mmol/L Anion Gap mmol/L BUN (7-17) mg/dL Creatinine (0.52-1.04) mg/dL Est GFR (CKD-EPI)AfAm (>60 ml/min/1.73 sqM) Est GFR (CKD-EPI)NonAf (>60 ml/min/1.73 sqM) Glucose (74-99) mg/dL Plasma Lactic Acid [place]ray[place] (0.7-2.0) mmol/L Calcium (8.4-10.2) mg/dL Magnesium (1.6-2.3) mg/dL Total Bilirubin (0.2-1.3) mg/dL AST (14-36) U/L ALT (4-34) U/L Alkaline Phosphatase (38-126) U/L Troponin I (0.000-0.034) ng/mL NT-Pro-B Natriuret Pep 778 pg/mL Total Protein (6.3-8.2) g/dL Albumin (3.5-5.0) g/dL Urine Color Urine Appearance (Clear) Urine pH (5.0-8.0) Ur Specific [place] (1.001-1.035) Urine Protein (Negative) Urine Glucose (UA) (Negative) Urine Ketones (Negative) Urine Blood (Negative) Urine Nitrite (Negative) Urine Bilirubin (Negative) Urine Urobilinogen (<2.0) mg/dL Ur Leukocyte Esterase (Negative) Urine RBC (0-5) /hpf Urine WBC (0-5) /hpf Ur Squamous Epith Cells (0-4) /hpf Disposition Clinical Impression: Pedal edema Disposition: HOME SELF-CARE Condition: Good Instructions (If sedation given, give patient instructions): Leg Edema (ED) Additional Instructions: Take Lasix as prescribed and follow-up with her primary medical care doctor Is patient prescribed a controlled substance at d/c from ED?: No Referrals: Anne-Marie Gordon MD [Primary Care Provider] - 1-2 days Time of Disposition: 15:50
[2020-06-27 14:08] LABS: Basophils % (A) 0 %; Eosinophils # (A) 0.1 k/uL (0-0.7); Eosinophils % (A) 1 %; HGB 12.9 gm/dL (11.4-16.0); Lymphocytes # (A) 1.5 k/uL (1.0-4.8); Lymphocytes % (A) 23 %; MCH 30.6 pg (25.0-35.0); MCHC 31.5 g/dL (31.0-37.0); MCV 97.4 fL (80.0-100.0); Mean Platelet Volume 8.3; Monocytes # (A) 0.3 k/uL (0-1.0); Monocytes % (A) 5 %; Neutrophils # (A) 4.7 k/uL (1.3-7.7); Neutrophils % (A) 70 %; Platelet Count 297 k/uL (150-450); RBC 4.21 m/uL (3.80-5.40); RDW 14.5 % (11.5-15.5); WBC 6.7 k/uL (3.8-10.6)
[2020-06-27 14:14] LABS: INR 0.9 (<1.2); Partial Thromboplastin Time 26.9 sec (22.0-30.0); Prothrombin Time 10.1 sec (9.0-12.0)
[2020-06-27 14:15] LABS: Albumin 3.8 g/dL (3.5-5.0); Calcium 9.3 mg/dL (8.4-10.2); Magnesium 1.8 mg/dL (1.6-2.3); Potassium 3.9 mmol/L (3.5-5.1); Total Bilirubin 0.3 mg/dL (0.2-1.3); Total Protein 6.3 g/dL (6.3-8.2)
[2020-06-27 14:59] LABS: Appearance,Urine Clear (Clear); Bilirubin,Urine Negative (Negative); Blood,Urine Negative (Negative); Color,Urine Light Yellow; Glucose,Urine (UA) Negative (Negative); Ketones,Urine Negative (Negative); Leukocyte Esterase,Urine Trace (Negative); Nitrite,Urine Negative (Negative); Protein,Urine Negative (Negative); RBC,Urine <1 /hpf (0-5); Specific Gravity,Urine 1.017 (1.001-1.035); Squamous Epithelial Cell,Urine <1 /hpf (0-4); Urobilinogen,Urine <2.0 mg/dL (<2.0); WBC,Urine 1 /hpf (0-5)
[2020-06-27 15:17] VITALS: PULSE 78
--- NOTE | 2020-06-27 15:23 | XR ---
EXAMINATION TYPE: XR chest 2V DATE OF EXAM: 06/27/2020 COMPARISON: 03/01/2020 HISTORY: Shortness of breath TECHNIQUE: Frontal and lateral views of the chest are obtained. FINDINGS: Scattered senescent parenchymal changes noted. Hyperinflation compatible with COPD. No evidence for infiltrate. No evidence for atelectasis. Heart size is stable. Mediastinal structures are stable and grossly unremarkable. No evidence for hilar prominence. Degenerative changes dorsal spine. IMPRESSION: 1. No evidence for acute pulmonary disease.
[2020-06-27 16:05] VITALS: BP 165/98
== END 2020-06-27 16:05 | disposition home or self-care (01) ==
LOC: EC 12:39
DX: R60.0 Localized edema (principal); M79.89 Other specified soft tissue disorders; K21.9 Gastro-esophageal reflux disease without esophagitis; I10 Essential (primary) hypertension; J44.9 Chronic obstructive pulmonary disease, unspecified; F41.9 Anxiety disorder, unspecified; F32.9 Major depressive disorder, single episode, unspecified; F12.90 Cannabis use, unspecified, uncomplicated; F17.200 Nicotine dependence, unspecified, uncomplicated; Z79.899 Other long term (current) drug therapy; Z79.1 Long term (current) use of non-steroidal anti-inflammatories (NSAID); Z79.51 Long term (current) use of inhaled steroids; Z88.0 Allergy status to penicillin; Z88.1 Allergy status to other antibiotic agents
CPT/HCPCS: 36415; 71046; 80053; 81001; 83605; 83735; 83880; 84484; 85025; 85610; 85730; 93005; 99284

== ENCOUNTER 2020-09-09 10:50 | Emergency (ER) | payer OTHER ==
[2020-09-09 11:06] VITALS: RESP 18; TEMP 97.8
[2020-09-09] MEDS ORDERED: SODIUM CHLORIDE 0.9% 1,000 ML IV STA (11:21)
[2020-09-09 12:05] LABS: Basophils % (A) 0 %; Eosinophils % (A) 0 %; HCT 38.5 % (34.0-46.0); HGB 12.6 gm/dL (11.4-16.0); Lymphocytes # (A) 1.7 k/uL (1.0-4.8); Lymphocytes % (A) 24 %; MCH 32.4 pg (25.0-35.0); MCHC 32.8 g/dL (31.0-37.0); MCV 98.8 fL (80.0-100.0); Mean Platelet Volume 8.6; Monocytes # (A) 0.3 k/uL (0-1.0); Monocytes % (A) 5 %; Neutrophils # (A) 4.9 k/uL (1.3-7.7); Neutrophils % (A) 69 %; Platelet Count 340 k/uL (150-450); RDW 13.8 % (11.5-15.5); WBC 7.2 k/uL (3.8-10.6)
[2020-09-09 12:19] LABS: ALT 7 U/L (4-34); AST 26 U/L (14-36); African American GFR (CKD) >90 (>60 ml/min/1.73 sqM); Albumin 3.9 g/dL (3.5-5.0); Alkaline Phosphatase 62 U/L (38-126); Amylase 64 U/L (30-110); Anion Gap 8 mmol/L; Blood Urea Nitrogen 14 mg/dL (7-17); Calcium 9.1 mg/dL (8.4-10.2); Carbon Dioxide 19 mmol/L (22-30); Chloride 116 mmol/L (98-107); Glucose 97 mg/dL (74-99); Lipase 64 U/L (23-300); Non-African American GFR(CKD) 79 (>60 ml/min/1.73 sqM); Potassium 3.1 mmol/L (3.5-5.1); Sodium 143 mmol/L (137-145); Total Bilirubin 0.2 mg/dL (0.2-1.3); Total Protein 6.5 g/dL (6.3-8.2)
[2020-09-09] MEDS ORDERED: HYDROmorphone 0.5 MG/0.5 ML SYRINGE IVP STA (12:51)
[2020-09-09] MEDS ORDERED: ONDANSETRON 4 MG/2 ML VIAL IVP STA (12:51)
[2020-09-09] MEDS ORDERED: SODIUM CHLORIDE 0.9% 1,000 ML IV ONE (13:49)
--- NOTE | 2020-09-09 13:55 | ED ---
Nausea/Vomiting/Diarrhea HPI - General Chief complaint: Nausea/Vomiting/Diarrhea Stated complaint: Bloody Stool/Diarrhea Time Seen by Provider: 09/09/20 11:21 Source: patient, RN notes reviewed Mode of arrival: ambulatory Limitations: no limitations - History of Present Illness Initial comments: This a 60-year-old female presents emergency from chief complaint of nausea, diarrhea. Patient states that she's been having issues for one month. She states that she cannot anything in her body for last 2 minutes. Patient states that she has diarrhea every time she eats. She states that she feels so weak, run down. Patient has no localized abdominal pain states she says cramping diffusely. Patient denies fevers or chills no bloody stools. - Related Data Home Medications Medication Instructions Recorded Confirmed Atorvastatin Calcium [Lipitor] 10 mg PO HS 03/02/20 09/09/20 Baclofen [Lioresal] 10 mg PO Q8H PRN 03/02/20 09/09/20 Dicyclomine HCl 20 mg PO TID PRN 03/02/20 09/09/20 Ergocalciferol (Vitamin D2) 1,250 mcg PO MO 03/02/20 09/09/20 [Vitamin D2 (50,000 units)] Fenofibrate Nanocrystallized 145 mg PO DAILY 03/02/20 09/09/20 [Fenofibrate] Ondansetron [Zofran ODT] 4 mg PO Q12H PRN 03/02/20 09/09/20 Pramipexole [Mirapex] 0.125 mg PO HS 03/02/20 09/09/20 busPIRone HCl [Buspar] 10 mg PO Q8H 03/02/20 09/09/20 Albuterol Sulfate [Proair Hfa] 1 - 2 puff INHALATION RT-Q4H PRN 06/27/20 09/09/20 Escitalopram [Lexapro] 20 mg PO DAILY 06/27/20 09/09/20 Fluticasone/Salmeterol [Advair 1 puff INHALATION RT-BID 06/27/20 09/09/20 250-50 Diskus] Ibuprofen [Motrin] 800 mg PO Q12H PRN 06/27/20 09/09/20 Omeprazole 20 mg PO BID 06/27/20 09/09/20 Tiotropium [place] [Spiriva] 1 cap INHALATION RT-DAILY 06/27/20 09/09/20 Losartan Potassium [Cozaar] 25 mg PO DAILY 09/09/20 09/09/20 Previous Rx's Medication Instructions Recorded Vancomycin 125 mg PO QID #40 capsule 09/09/20 Allergies Allergy/AdvReac Type Severity Reaction Status Date / Time cephalexin [From Keflex] Allergy Rash/Hives Verified 09/09/20 12:15 Penicillins Allergy Rash/Hives Verified 09/09/20 12:15 Review of Systems ROS Statement: Those systems with pertinent positive or pertinent negative responses have been documented in the HPI. ROS Other: All systems not noted in ROS Statement are negative. Past Medical History Past Medical History: GERD/Reflux, Hypertension History of Any Multi-Drug Resistant Organisms: None Reported Past Surgical History: Section, Cholecystectomy, Hysterectomy, Tonsillectomy Past Anesthesia/Blood Transfusion Reactions: No Reported Reaction Past Psychological History: Anxiety, Depression Smoking Status: Current every day smoker Past Alcohol Use History: None Reported Past Drug Use History: Marijuana General Exam Limitations: no limitations General appearance: alert, in no apparent distress Head exam: Present: atraumatic, normocephalic, normal inspection Neck exam: Present: normal inspection, full ROM. Absent: tenderness, meningismus, lymphadenopathy Respiratory exam: Present: normal lung sounds bilaterally. Absent: respiratory distress, wheezes, rales, rhonchi, stridor Cardiovascular Exam: Present: regular rate, normal rhythm, normal heart sounds. Absent: systolic murmur, diastolic murmur, rubs, gallop, clicks GI/Abdominal exam: Present: soft, tenderness (Mild diffuse), normal bowel sounds. Absent: distended, guarding, rebound, rigid Course Vital Signs 09/09/20 11:02 Temperature 97.8 F Pulse Rate 67 Respiratory 18 Rate Blood Pressure 144/83 O2 Sat by Pulse 97 Oximetry Medical Decision Making - Medical Decision Making Patient presented for ongoing diarrhea times one month. Patient is mildly hypokalemic, found to be C. diff positive. Patient was given vancomycin orally we discharged on vancomycin with close follow-up. - Lab Data Result diagrams: 09/09/20 11:46 09/09/20 11:46 Lab Results 09/09/20 09/09/20 09/09/20 Range/Units 11:46 11:46 11:46 WBC 7.2 (3.8-10.6) k/uL RBC 3.90 (3.80-5.40) m/uL Hgb 12.6 (11.4-16.0) gm/dL Hct 38.5 (34.0-46.0) % MCV 98.8 (80.0-100.0) fL MCH 32.4 (25.0-35.0) pg MCHC 32.8 (31.0-37.0) g/dL RDW 13.8 (11.5-15.5) % Plt Count 340 (150-450) k/uL MPV 8.6 Neutrophils % 69 % Lymphocytes % 24 % Monocytes % 5 % Eosinophils % 0 % Basophils % 0 % Neutrophils # 4.9 (1.3-7.7) k/uL Lymphocytes # 1.7 (1.0-4.8) k/uL Monocytes # 0.3 (0-1.0) k/uL Eosinophils # 0.0 (0-0.7) k/uL Basophils # 0.0 (0-0.2) k/uL Sodium 143 (137-145) mmol/L Potassium 3.1 L (3.5-5.1) mmol/L Chloride 116 H (98-107) mmol/L Carbon Dioxide 19 L (22-30) mmol/L Anion Gap 8 mmol/L BUN 14 (7-17) mg/dL Creatinine 0.81 (0.52-1.04) mg/dL Est GFR (CKD-EPI)AfAm >90 (>60 ml/min/1.73 sqM) Est GFR (CKD-EPI)NonAf 79 (>60 ml/min/1.73 sqM) Glucose 97 (74-99) mg/dL Plasma Lactic Acid Brayan 0.6 L (0.7-2.0) mmol/L Calcium 9.1 (8.4-10.2) mg/dL Total Bilirubin 0.2 (0.2-1.3) mg/dL AST 26 (14-36) U/L ALT 7 (4-34) U/L Alkaline Phosphatase 62 (38-126) U/L Total Protein 6.5 (6.3-8.2) g/dL Albumin 3.9 (3.5-5.0) g/dL Amylase 64 (30-110) U/L Lipase 64 (23-300) U/L Stool Occult Blood (Negative) C. difficile (EIA) Intrp (Negative) 09/09/20 09/09/20 Range/Units 13:00 13:00 WBC (3.8-10.6) k/uL RBC (3.80-5.40) m/uL Hgb (11.4-16.0) gm/dL Hct (34.0-46.0) % MCV (80.0-100.0) fL MCH (25.0-35.0) pg MCHC (31.0-37.0) g/dL RDW (11.5-15.5) % Plt Count (150-450) k/uL MPV Neutrophils % % Lymphocytes % % Monocytes % % Eosinophils % % Basophils % % Neutrophils # (1.3-7.7) k/uL Lymphocytes # (1.0-4.8) k/uL Monocytes # (0-1.0) k/uL Eosinophils # (0-0.7) k/uL Basophils # (0-0.2) k/uL Sodium (137-145) mmol/L Potassium (3.5-5.1) mmol/L Chloride (98-107) mmol/L Carbon Dioxide (22-30) mmol/L Anion Gap mmol/L BUN (7-17) mg/dL Creatinine (0.52-1.04) mg/dL Est GFR (CKD-EPI)AfAm (>60 ml/min/1.73 sqM) Est GFR (CKD-EPI)NonAf (>60 ml/min/1.73 sqM) Glucose (74-99) mg/dL Plasma Lactic Acid Brayan (0.7-2.0) mmol/L Calcium (8.4-10.2) mg/dL Total Bilirubin (0.2-1.3) mg/dL AST (14-36) U/L ALT (4-34) U/L Alkaline Phosphatase (38-126) U/L Total Protein (6.3-8.2) g/dL Albumin (3.5-5.0) g/dL Amylase (30-110) U/L Lipase (23-300) U/L Stool Occult Blood Negative (Negative) C. difficile (EIA) Intrp Positive A (Negative) Disposition Clinical Impression: Clostridium difficile diarrhea, Hypokalemia Disposition: HOME SELF-CARE Condition: Stable Instructions (If sedation given, give patient instructions): C Diff (Clostridium Difficile) Infection (ED) Additional Instructions: Please return to the Emergency Department if symptoms worsen or any other c oncerns. Prescriptions: Vancomycin 125 mg PO QID #40 capsule Is patient prescribed a controlled substance at d/c from ED?: No Referrals: Anne-Marie Gordon MD [Primary Care Provider] - 1-2 days Time of Disposition: 14:45
[2020-09-09] MEDS: POTASSIUM BICARBONATE/CIT AC 20 MEQ TABLET.EFF PO ONE ×2 (14:39→14:42)
[2020-09-09] MEDS ORDERED: VANCOMYCIN 125 MG CAPSULE PO STA (14:43)
[2020-09-09] MEDS ORDERED: POTASSIUM CHLORIDE ER 20 MEQ TAB.ER PO STA (14:48)
[2020-09-09 15:07] VITALS: BP 122/74; PULSE 72
== END 2020-09-09 15:11 | disposition home or self-care (01) ==
LOC: EC 10:50
DX: A04.72 Enterocolitis due to Clostridium difficile, not specified as recurrent (principal); E87.6 Hypokalemia; F17.200 Nicotine dependence, unspecified, uncomplicated; I10 Essential (primary) hypertension; K21.9 Gastro-esophageal reflux disease without esophagitis; Z79.51 Long term (current) use of inhaled steroids; Z79.899 Other long term (current) drug therapy; Z88.0 Allergy status to penicillin; Z88.1 Allergy status to other antibiotic agents
CPT/HCPCS: 80053; 82150; 83605; 83690; 85025; 82272; 87324; 87045; 87046; 99284; 96374; 96375; 96361; J2405; J1170

== ENCOUNTER 2020-10-25 12:48 | Emergency (ER) | payer OTHER ==
[2020-10-25 13:37] VITALS: TEMP 98.1
[2020-10-25] MEDS ORDERED: MORPHINE SULFATE 4 MG/ML SYRINGE IV STA (15:03)
[2020-10-25 15:32] LABS: Appearance,Urine Cloudy (Clear); Bacteria,Urine Rare /hpf; Bilirubin,Urine Negative (Negative); Blood,Urine Negative (Negative); Color,Urine Yellow; Glucose,Urine (UA) Negative (Negative); Hyaline Casts,Urine 3 /lpf (0-2); Ketones,Urine Negative (Negative); Leukocyte Esterase,Urine Moderate (Negative); Mucus,Urine Rare /hpf; Nitrite,Urine Negative (Negative); Protein,Urine Trace (Negative); RBC,Urine 1 /hpf (0-5); Specific Gravity,Urine 1.025 (1.001-1.035); Squamous Epithelial Cell,Urine 4 /hpf (0-4); WBC,Urine 8 /hpf (0-5)
--- NOTE | 2020-10-25 15:34 | XR ---
EXAMINATION TYPE: XR chest 2V DATE OF EXAM: 10/25/2020 COMPARISON: 06/27/2020 HISTORY: Shortness of breath TECHNIQUE: Frontal and lateral views of the chest are obtained. FINDINGS: Scattered senescent parenchymal changes noted. Hyperinflation compatible with COPD. No evidence for infiltrate. No evidence for atelectasis. Heart size is stable. Mediastinal structures are stable and grossly unremarkable. No evidence for hilar prominence. Degenerative changes dorsal spine. IMPRESSION: 1. No evidence for acute pulmonary disease.
--- NOTE | 2020-10-25 15:35 | XR ---
EXAMINATION TYPE: XR pelvis AP view DATE OF EXAM: 10/25/2020 COMPARISON: NONE HISTORY: Pain The osseous structures are intact and the joint spaces are preserved. No acute fracture is seen. Vi sualized bowel gas pattern is nonspecific. Nonspecific calcifications within the pelvis. IMPRESSION: 1. No acute fracture.
[2020-10-25 15:38] LABS: Albumin 4.4 g/dL (3.5-5.0); Calcium 9.9 mg/dL (8.4-10.2); Magnesium 1.9 mg/dL (1.6-2.3); Total Bilirubin 0.5 mg/dL (0.2-1.3); Total Protein 7.5 g/dL (6.3-8.2)
[2020-10-25 15:40] LABS: Potassium 2.7 mmol/L (3.5-5.1)
[2020-10-25 15:44] VITALS: PULSE 80; RESP 18
[2020-10-25 15:47] LABS: INR 1.1 (<1.2); Partial Thromboplastin Time 29.8 sec (22.0-30.0); Prothrombin Time 11.9 sec (9.0-12.0)
[2020-10-25] MEDS ORDERED: POTASSIUM CHLORIDE ER 20 MEQ TAB.ER PO STA (15:48)
[2020-10-25] MEDS ORDERED: POTASSIUM CHLORIDE 20 MEQ in WATER FOR INJECTION 1 100ML.BAG IVPB STA (15:48)
[2020-10-25 16:11] LABS: Basophils % (A) 0 %; Eosinophils % (A) 0 %; HCT 35.6 % (34.0-46.0); HGB 12.4 gm/dL (11.4-16.0); Lymphocytes # (A) 2.1 k/uL (1.0-4.8); Lymphocytes % (A) 26 %; MCH 33.3 pg (25.0-35.0); MCHC 34.9 g/dL (31.0-37.0); MCV 95.2 fL (80.0-100.0); Mean Platelet Volume 9.5; Monocytes # (A) 0.4 k/uL (0-1.0); Monocytes % (A) 4 %; Neutrophils # (A) 5.5 k/uL (1.3-7.7); Neutrophils % (A) 67 %; Platelet Count 214 k/uL (150-450); RBC 3.73 m/uL (3.80-5.40); RDW 13.5 % (11.5-15.5); WBC 8.2 k/uL (3.8-10.6)
--- NOTE | 2020-10-25 16:26 | ED ---
Abdominal Pain HPI - General Chief Complaint: Abdominal Pain Stated Complaint: abd pain/blood in stool/pain in legs&hips Source: patient Mode of arrival: ambulatory Limitations: no limitations - History of Present Illness Initial Comments: 60-year-old female with past medical history of peptic ulcer disease, GI bleed, hypertension who presents to emergency room with multiple complaints. She reports that she had blood in her stool 2 days ago. States it is dark in color with some right red blood. Also admits to some epigastric abdominal pain and bilateral lower quadrant abdominal pain. Does admit to a history of peptic ulcer disease. Has been taking Motrin 800 mg daily for aches and cramps in her lower extremities. Patient is ambulating with a walker which she states is recent as of 2 weeks ago. States that the cramps in her lower extremity has been so intense that she needs a cane to stay balanced. She denies any injuries. Admits to history of similar pain when she had a DVT in her leg in the 80s. She denies any chest pain or shortness of breath. She saw her primary care doctor gave her referral for EGD/colonoscopy however does not have an appointment set up at this time. Denies weakness, fevers or chills. No alleviating, precipitating or modifying factors - Related Data Home Medications Medication Instructions Recorded Confirmed Baclofen [Lioresal] 10 mg PO Q8H PRN 03/02/20 10/25/20 Dicyclomine HCl 20 mg PO TID PRN 03/02/20 10/25/20 Fenofibrate Nanocrystallized 145 mg PO DAILY 03/02/20 10/25/20 [Fenofibrate] Pramipexole [Mirapex] 0.125 mg PO HS 03/02/20 10/25/20 busPIRone HCl [Buspar] 10 mg PO Q8H 03/02/20 10/25/20 Escitalopram [Lexapro] 20 mg PO DAILY 06/27/20 10/25/20 Fluticasone/Salmeterol [Advair 1 puff INHALATION RT-BID 06/27/20 10/25/20 250-50 Diskus] Ibuprofen [Motrin] 800 mg PO Q12H PRN 06/27/20 10/25/20 Omeprazole 20 mg PO BID 06/27/20 10/25/20 Tiotropium [place] [Spiriva] 1 cap INHALATION RT-DAILY 06/27/20 10/25/20 Era-3 Fatty Acids/Fish Oil [Fish 1 cap PO DAILY 10/25/20 10/25/20 Oil 1,000 mg Softgel] Vitamin B Complex 1 cap PO DAILY 10/25/20 10/25/20 Allergies Allergy/AdvReac Type Severity Reaction Status Date / Time cephalexin [From Keflex] Allergy Rash/Hives Verified 10/25/20 16:10 Penicillins Allergy Rash/Hives Verified 10/25/20 16:10 Review of Systems ROS Statement: Those systems with pertinent positive or pertinent negative responses have been documented in the HPI. ROS Other: All systems not noted in ROS Statement are negative. Past Medical History Past Medical History: GERD/Reflux, GI Bleed, Hypertension History of Any Multi-Drug Resistant Organisms: None Reported Past Surgical History: Section, Cholecystectomy, Hysterectomy, Tonsillectomy Past Anesthesia/Blood Transfusion Reactions: No Reported Reaction Past Psychological History: Anxiety, Depression Smoking Status: Current every day smoker Past Alcohol Use History: None Reported Past Drug Use History: Marijuana General Exam Limitations: no limitations General appearance: alert, in no apparent distress Head exam: Present: atraumatic, normocephalic, normal inspection Eye exam: Present: normal appearance, PERRL, EOMI. Absent: scleral icterus, conjunctival injection, periorbital swelling ENT exam: Present: normal exam, mucous membranes moist Neck exam: Present: normal inspection. Absent: tenderness, meningismus, lymphadenopathy Respiratory exam: Present: normal lung sounds bilaterally. Absent: respiratory distress, wheezes, rales, rhonchi, stridor Cardiovascular Exam: Present: regular rate, normal rhythm, normal heart sounds. Absent: systolic murmur, diastolic murmur, rubs, gallop, clicks GI/Abdominal exam: Present: soft, normal bowel sounds. Absent: distended, tenderness, guarding, rebound, rigid Rectal exam: Present: normal inspection, normal rectal tone. Absent: black stool, bloody stool Extremities exam: Present: normal inspection, full ROM, normal capillary refill. Absent: tenderness, pedal edema, joint swelling, calf tenderness Back exam: Present: normal inspection Neurological exam: Present: alert, oriented X3, CN II-XII intact Psychiatric exam: Present: normal affect, normal mood Skin exam: Present: warm, dry, intact, normal color. Absent: rash Course Vital Signs 10/25/20 10/25/20 10/25/20 13:34 15:43 16:50 Temperature 98.1 F Pulse Rate 84 80 80 Respiratory 20 18 18 Rate Blood Pressure 99/56 116/64 163/93 O2 Sat by Pulse 99 98 98 Oximetry Medical Decision Making - Medical Decision Making Upon arrival patient is placed into room 3. A thorough history and physical exam was performed. IV is established. She is given 4 mg morphine for pain control. Laboratory states were conducted. Patient does have a potassium of 2.6. AST 44. Occult is negative. She is sent over for a chest x-ray, pelvic x-ray. Venous Dopplers of her lower extremity also performed as well as a CT of her abdomen due to her multiple complaints. Chest x-ray demonstrates no active cardiopulmonary disease. Pelvic x-ray demonstrates no acute fracture. Venous Doppler demonstrates no ultrasound evidence for acute DVT in either of the lower extremities. CT of the abdomen and pelvis demonstrates postcholecystectomy changes. The patient is given 40 mEq of potassium as well as 20 mEq through the IV. I did discuss the diagnosis, treatment options. Patient will be discharged at this time and needs to have her potassium level redrawn next week. I did give her a prescription for this. Results will be sent her primary care doctor. Patient will need EGD and colonoscopy for her reported melanic stools. Occult is negative today. The patient has any new or worsening symptoms she needs to return to the emergency room. Patient agreed to the treatment plan was discharged home in stable condition - Lab Data Result diagrams: 10/25/20 15:59 10/25/20 15:59 Lab Results 10/25/20 10/25/20 10/25/20 Range/Units 15:21 15:21 15:21 WBC (3.8-10.6) k/uL RBC (3.80-5.40) m/uL Hgb (11.4-16.0) gm/dL Hct (34.0-46.0) % MCV (80.0-100.0) fL MCH (25.0-35.0) pg MCHC (31.0-37.0) g/dL RDW (11.5-15.5) % Plt Count (150-450) k/uL MPV Neutrophils % % Lymphocytes % % Monocytes % % Eosinophils % % Basophils % % Neutrophils # (1.3-7.7) k/uL Lymphocytes # (1.0-4.8) k/uL Monocytes # (0-1.0) k/uL Eosinophils # (0-0.7) k/uL Basophils # (0-0.2) k/uL PT 11.9 (9.0-12.0) sec INR 1.1 (<1.2) APTT 29.8 (22.0-30.0) sec Sodium 138 (137-145) mmol/L Potassium 2.7 L* (3.5-5.1) mmol/L Chloride 106 (98-107) mmol/L Carbon Dioxide 19 L (22-30) mmol/L Anion Gap 13 mmol/L BUN 34 H (7-17) mg/dL Creatinine 1.11 H (0.52-1.04) mg/dL Est GFR (CKD-EPI)AfAm 62 (>60 ml/min/1.73 sqM) Est GFR (CKD-EPI)NonAf 54 (>60 ml/min/1.73 sqM) Glucose 92 (74-99) mg/dL Plasma Lactic Acid Brayan (0.7-2.0) mmol/L Calcium 9.9 (8.4-10.2) mg/dL Magnesium 1.9 (1.6-2.3) mg/dL Total Bilirubin 0.5 (0.2-1.3) mg/dL AST 44 H (14-36) U/L ALT 15 (4-34) U/L Alkaline Phosphatase 107 (38-126) U/L Creatine Kinase 96 (30-135) U/L Total Protein 7.5 (6.3-8.2) g/dL Albumin 4.4 (3.5-5.0) g/dL Lipase 124 (23-300) U/L Urine Color Yellow Urine Appearance Cloudy H (Clear) Urine pH 6.0 (5.0-8.0) Ur Specific [place] 1.025 (1.001-1.035) Urine Protein Trace H (Negative) Urine Glucose (UA) Negative (Negative) Urine Ketones Negative (Negative) Urine Blood Negative (Negative) Urine Nitrite Negative (Negative) Urine Bilirubin Negative (Negative) Urine Urobilinogen 2.0 (<2.0) mg/dL Ur Leukocyte Esterase Moderate H (Negative) Urine RBC 1 (0-5) /hpf Urine WBC 8 H (0-5) /hpf Ur Squamous Epith Cells 4 (0-4) /hpf Urine Bacteria Rare H (None) /hpf Hyaline Casts 3 H (0-2) /lpf Urine Mucus Rare H (None) /hpf Stool Occult Blood (Negative) 10/25/20 10/25/20 10/25/20 Range/Units 15:21 15:21 15:59 WBC 8.2 (3.8-10.6) k/uL RBC 3.73 L (3.80-5.40) m/uL Hgb 12.4 (11.4-16.0) gm/dL Hct 35.6 (34.0-46.0) % MCV 95.2 (80.0-100.0) fL MCH 33.3 (25.0-35.0) pg MCHC 34.9 (31.0-37.0) g/dL RDW 13.5 (11.5-15.5) % Plt Count 214 (150-450) k/uL MPV 9.5 Neutrophils % 67 % Lymphocytes % 26 % Monocytes % 4 % Eosinophils % 0 % Basophils % 0 % Neutrophils # 5.5 (1.3-7.7) k/uL Lymphocytes # 2.1 (1.0-4.8) k/uL Monocytes # 0.4 (0-1.0) k/uL Eosinophils # 0.0 (0-0.7) k/uL Basophils # 0.0 (0-0.2) k/uL PT (9.0-12.0) sec INR (<1.2) APTT (22.0-30.0) sec Sodium (137-145) mmol/L Potassium (3.5-5.1) mmol/L Chloride (98-107) mmol/L Carbon Dioxide (22-30) mmol/L Anion Gap mmol/L BUN (7-17) mg/dL Creatinine (0.52-1.04) mg/dL Est GFR (CKD-EPI)AfAm (>60 ml/min/1.73 sqM) Est GFR (CKD-EPI)NonAf (>60 ml/min/1.73 sqM) Glucose (74-99) mg/dL Plasma Lactic Acid Brayan 1.6 (0.7-2.0) mmol/L Calcium (8.4-10.2) mg/dL Magnesium (1.6-2.3) mg/dL Total Bilirubin (0.2-1.3) mg/dL AST (14-36) U/L ALT (4-34) U/L Alkaline Phosphatase (38-126) U/L Creatine Kinase (30-135) U/L Total Protein (6.3-8.2) g/dL Albumin (3.5-5.0) g/dL Lipase (23-300) U/L Urine Color Urine Appearance (Clear) Urine pH (5.0-8.0) Ur Specific [place] (1.001-1.035) Urine Protein (Negative) Urine Glucose (UA) (Negative) Urine Ketones (Negative) Urine Blood (Negative) Urine Nitrite (Negative) Urine Bilirubin (Negative) Urine Urobilinogen (<2.0) mg/dL Ur Leukocyte Esterase (Negative) Urine RBC (0-5) /hpf Urine WBC (0-5) /hpf Ur Squamous Epith Cells (0-4) /hpf Urine Bacteria (None) /hpf Hyaline Casts (0-2) /lpf Urine Mucus (None) /hpf Stool Occult Blood Negative (Negative) 10/25/20 Range/Units 15:59 WBC (3.8-10.6) k/uL RBC (3.80-5.40) m/uL Hgb (11.4-16.0) gm/dL Hct (34.0-46.0) % MCV (80.0-100.0) fL MCH (25.0-35.0) pg MCHC (31.0-37.0) g/dL RDW (11.5-15.5) % Plt Count (150-450) k/uL MPV Neutrophils % % Lymphocytes % % Monocytes % % Eosinophils % % Basophils % % Neutrophils # (1.3-7.7) k/uL Lymphocytes # (1.0-4.8) k/uL Monocytes # (0-1.0) k/uL Eosinophils # (0-0.7) k/uL Basophils # (0-0.2) k/uL PT (9.0-12.0) sec INR (<1.2) APTT (22.0-30.0) sec Sodium (137-145) mmol/L Potassium 2.6 L* (3.5-5.1) mmol/L Chloride (98-107) mmol/L Carbon Dioxide (22-30) mmol/L Anion Gap mmol/L BUN (7-17) mg/dL Creatinine (0.52-1.04) mg/dL Est GFR (CKD-EPI)AfAm (>60 ml/min/1.73 sqM) Est GFR (CKD-EPI)NonAf (>60 ml/min/1.73 sqM) Glucose (74-99) mg/dL Plasma Lactic Acid Brayan (0.7-2.0) mmol/L Calcium (8.4-10.2) mg/dL Magnesium (1.6-2.3) mg/dL Total Bilirubin (0.2-1.3) mg/dL AST (14-36) U/L ALT (4-34) U/L Alkaline Phosphatase (38-126) U/L Creatine Kinase (30-135) U/L Total Protein (6.3-8.2) g/dL Albumin (3.5-5.0) g/dL Lipase (23-300) U/L Urine Color Urine Appearance (Clear) Urine pH (5.0-8.0) Ur Specific [place] (1.001-1.035) Urine Protein (Negative) Urine Glucose (UA) (Negative) Urine Ketones (Negative) Urine Blood (Negative) Urine Nitrite (Negative) Urine Bilirubin (Negative) Urine Urobilinogen (<2.0) mg/dL Ur Leukocyte Esterase (Negative) Urine RBC (0-5) /hpf Urine WBC (0-5) /hpf Ur Squamous Epith Cells (0-4) /hpf Urine Bacteria (None) /hpf Hyaline Casts (0-2) /lpf Urine Mucus (None) /hpf Stool Occult Blood (Negative) - EKG Data EKG Comments: EKG demonstrates normal sinus rhythm with a ventricular rate of 78. [place] interval 152. QRS 74. QTC worsening 1. No acute ST segment elevations or depressions Disposition Clinical Impression: Hypokalemia, Cramps of lower extremity, Abdominal pain, Melena Disposition: HOME SELF-CARE Condition: Stable Instructions (If sedation given, give patient instructions): Gastrointestinal Bleeding (ED), Hypokalemia (ED) Additional Instructions: Please follow up with Dr. Alvarez for an EGD and colonoscopy. Return to the outpatient lab next week to have your potassium level redrawn. These results will be sent to your pcp. Return to the emergency room for any new or worsening symptoms Is patient prescribed a controlled substance at d/c from ED?: No Referrals: Noemí Alvarez MD [STAFF PHYSICIAN] - 1-2 days Anne-Marie Gordon MD [Primary Care Provider] - 1-2 days Time of Disposition: 17:50
--- NOTE | 2020-10-25 16:34 | US ---
EXAMINATION TYPE: US venous doppler duplex LE DATE OF EXAM: 10/25/2020 4:18 PM COMPARISON: NONE CLINICAL HISTORY: calf pain, hx dvt. Not on blood thinners. No redness. No swelling. SIDE PERFORMED: Bilateral TECHNIQUE: The lower extremity deep venous system is examined utilizing real time linear array sonog germania with graded compression, doppler sonography and color-flow sonography. VESSELS IMAGED: Common Femoral Vein Deep Femoral Vein Greater Saphenous Vein * Femoral Vein Popliteal Vein Small Saphenous Vein * Proximal Calf Veins (* superficial vessels) Right Leg: Negative for DVT Left Leg: Negative for DVT Grayscale, color doppler, spectral doppler imaging performed of the deep veins of the bilateral lower extremities. There is normal flow, compressibility, vascular waveforms. IMPRESSION: No ultrasound evidence for acute DVT in either lower extremity.
[2020-10-25 16:51] VITALS: BP 163/93
--- NOTE | 2020-10-25 17:18 | CT ---
EXAMINATION TYPE: CT abdomen pelvis w con DATE OF EXAM: 10/25/2020 COMPARISON: None HISTORY: Abdominal pain/blood in stool, pain in legs and hips CT DLP: 536.1 mGycm Automated exposure control for dose reduction was used. TECHNIQUE: Helical acquisition of images was performed from the lung bases through the pelvis. CONTRAST: Performed without Oral Contrast and with IV Contrast, patient injected with 80 mL of Isovue 300. FINDINGS: LUNG BASES: Normal. LIVER: Normal. BILIARY SYSTEM: Status post cholecystectomy with intrahepatic and extrahepatic biliary ductal dilatat ion. Common bile duct measures 11 mm distally and 7 mm proximally. PANCREAS: Normal. SPLEEN: Normal. ADRENALS: Normal. KIDNEYS: Normal. BOWEL: No obstruction or thickening. PERITONEUM: No pneumoperitoneum. No free fluid. LYMPH NODES: No lymphadenopathy. PELVIS: Normal urinary bladder. Status post hysterectomy. VASCULATURE: No abdominal aortic aneurysm. MUSCULOSKELETAL: Degenerative changes of the spine. IMPRESSION: Status post cholecystectomy. There is intrahepatic and extrahepatic biliary ductal dilatation which m ay represent postoperative changes. Recommend correlation with LFTs.
== END 2020-10-25 18:33 | disposition home or self-care (01) ==
LOC: EC 12:48
DX: E87.6 Hypokalemia (principal); R10.13 Epigastric pain; R25.2 Cramp and spasm; K92.1 Melena; R10.31 Right lower quadrant pain; R10.32 Left lower quadrant pain; F17.200 Nicotine dependence, unspecified, uncomplicated; I10 Essential (primary) hypertension; K21.9 Gastro-esophageal reflux disease without esophagitis; Z79.51 Long term (current) use of inhaled steroids; Z86.718 Personal history of other venous thrombosis and embolism; Z88.0 Allergy status to penicillin; Z88.1 Allergy status to other antibiotic agents; Z79.899 Other long term (current) drug therapy; Z90.49 Acquired absence of other specified parts of digestive tract; Z87.11 Personal history of peptic ulcer disease
CPT/HCPCS: 99284; 96374; 36415; 93005; 80053; 82550; 83605; 83690; 83735; 84132; 85025; 85610; 85730; 82272; 81001; 72170; 71046; 93970; 74177; J2270; J3480; Q9967

== ENCOUNTER 2020-12-24 15:23 | Inpatient (IN) | payer OTHER ==
[2020-12-24] MEDS ORDERED: ALBUTEROL HFA INHALER INHALATION STA (16:10)
[2020-12-24] MEDS ORDERED: ACETAMINOPHEN TAB 325 MG TAB PO STA (16:10)
[2020-12-24] MEDS ORDERED: ALBUTEROL HFA INHALER INHALATION PRN (16:10)
[2020-12-24] MEDS ORDERED: ACETAMINOPHEN TAB 325 MG TAB PO PRN (16:10)
--- NOTE | 2020-12-24 16:17 | ED ---
General Adult HPI - General Chief complaint: Shortness of Breath Stated complaint: SOB Time Seen by Provider: 12/24/20 15:36 Source: patient, EMS, RN notes reviewed Mode of arrival: EMS Limitations: no limitations - History of Present Illness Initial comments: Patient is a pleasant [age]-year-old female presenting to the emergency department with concerns for difficulty breathing. Onset of symptoms was around 4 days ago. Patient does have cough with some clear brown sputum. Patient has had chills. Unclear if she has fevers. Patient does have history of chronic bronchitis since a child. Patient does have myalgias. No calf pain or leg swelling. Patient does occasionally use inhalers at home however is not like him because there are steroids in them. - Related Data Home Medications Medication Instructions Recorded Confirmed Baclofen [Lioresal] 10 mg PO Q8H PRN 03/02/20 12/24/20 Dicyclomine HCl 20 mg PO TID PRN 03/02/20 12/24/20 Pramipexole [Mirapex] 0.125 mg PO HS 03/02/20 12/24/20 busPIRone HCl [Buspar] 10 mg PO Q8H 03/02/20 12/24/20 Escitalopram [Lexapro] 20 mg PO DAILY 06/27/20 12/24/20 Fluticasone/Salmeterol [Advair 1 puff INHALATION RT-BID 06/27/20 12/24/20 250-50 Diskus] Ibuprofen [Motrin] 800 mg PO Q12H PRN 06/27/20 12/24/20 Omeprazole 20 mg PO BID 06/27/20 12/24/20 Tiotropium [place] [Spiriva] 1 cap INHALATION RT-DAILY 06/27/20 12/24/20 Albuterol Inhaler [Ventolin Hfa 2 puff INHALATION RT-QID PRN 12/24/20 12/24/20 Inhaler] Atorvastatin [Lipitor] 10 mg PO HS 12/24/20 12/24/20 Hydrochlorothiazide 12.5 mg PO DAILY 12/24/20 12/24/20 [hydroCHLOROthiazide] Allergies Allergy/AdvReac Type Severity Reaction Status Date / Time cephalexin [From Keflex] Allergy Rash/Hives Verified 12/24/20 16:40 Penicillins Allergy Rash/Hives Verified 12/24/20 16:40 Review of Systems ROS Statement: Those systems with pertinent positive or pertinent negative responses have been documented in the HPI. ROS Other: All systems not noted in ROS Statement are negative. Constitutional: Reports: as per HPI, chills Eyes: Denies: eye pain ENT: Denies: ear pain Respiratory: Reports: as per HPI, cough, dyspnea Cardiovascular: Denies: chest pain Endocrine: Reports: fatigue Gastrointestinal: Denies: abdominal pain Genitourinary: Denies: dysuria Musculoskeletal: Denies: back pain Skin: Denies: rash Neurological: Denies: weakness Past Medical History Past Medical History: GERD/Reflux, GI Bleed, Hypertension History of Any Multi-Drug Resistant Organisms: None Reported Past Surgical History: Section, Cholecystectomy, Hysterectomy, Tonsillectomy Past Anesthesia/Blood Transfusion Reactions: No Reported Reaction Past Psychological History: Anxiety, Depression Smoking Status: Current every day smoker Past Alcohol Use History: None Reported Past Drug Use History: Marijuana General Exam Limitations: no limitations General appearance: alert, in no apparent distress Head exam: Present: normocephalic Eye exam: Present: normal appearance Neck exam: Present: normal inspection Respiratory exam: Present: wheezes, decreased breath sounds. Absent: respiratory distress Cardiovascular Exam: Present: regular rate, normal rhythm GI/Abdominal exam: Present: soft. Absent: tenderness Extremities exam: Present: normal inspection. Absent: pedal edema, calf tenderness Neurological exam: Present: alert Psychiatric exam: Present: normal affect, normal mood Skin exam: Present: normal color Course Vital Signs 12/24/20 12/24/20 12/24/20 15:31 15:36 18:10 Temperature 99 F Pulse Rate 98 77 Respiratory 22 22 Rate Blood Pressure 153/107 O2 Sat by Pulse 92 L Oximetry 12/24/20 18:22 Temperature Pulse Rate 84 Respiratory Rate Blood Pressure O2 Sat by Pulse Oximetry EKG Findings - EKG Comments: EKG Findings:: Normal sinus rhythm with rate of 83. SC 146. QRS 72. QT 400. QTc 470. Normal axis. Normal QRS. No acute ST change. Medical Decision Making - Medical Decision Making Patient reevaluated and still feels short of breath. Change has somewhat improved. Wheezing has actually increased. Patient updated on results and plan. Case was discussed with Dr. Abraham, covering Dr. Jones, who will admit. - Lab Data Result diagrams: 12/24/20 16:49 12/24/20 16:49 Lab Results 12/24/20 12/24/20 12/24/20 Range/Units 16:49 16:49 16:49 WBC 6.6 (3.8-10.6) k/uL RBC 4.19 (3.80-5.40) m/uL Hgb 12.8 (11.4-16.0) gm/dL Hct 38.8 (34.0-46.0) % MCV 92.5 (80.0-100.0) fL MCH 30.6 (25.0-35.0) pg MCHC 33.1 (31.0-37.0) g/dL RDW 15.1 (11.5-15.5) % Plt Count 201 (150-450) k/uL MPV 9.4 Neutrophils % 77 % Lymphocytes % 15 % Monocytes % 6 % Eosinophils % 0 % Basophils % 0 % Neutrophils # 5.1 (1.3-7.7) k/uL Lymphocytes # 1.0 (1.0-4.8) k/uL Monocytes # 0.4 (0-1.0) k/uL Eosinophils # 0.0 (0-0.7) k/uL Basophils # 0.0 (0-0.2) k/uL PT 10.4 (9.0-12.0) sec INR 1.0 (<1.2) APTT 30.1 H (22.0-30.0) sec Sodium 140 (137-145) mmol/L Potassium 4.0 (3.5-5.1) mmol/L Chloride 115 H (98-107) mmol/L Carbon Dioxide 17 L (22-30) mmol/L Anion Gap 8 mmol/L BUN 7 (7-17) mg/dL Creatinine 0.73 (0.52-1.04) mg/dL Est GFR (CKD-EPI)AfAm >90 (>60 ml/min/1.73 sqM) Est GFR (CKD-EPI)NonAf 89 (>60 ml/min/1.73 sqM) Glucose 102 H (74-99) mg/dL Plasma Lactic Acid Bray[place] (0.7-2.0) mmol/L Calcium 8.8 (8.4-10.2) mg/dL Magnesium 1.7 (1.6-2.3) mg/dL Total Bilirubin 0.6 (0.2-1.3) mg/dL AST 39 H (14-36) U/L ALT 8 (4-34) U/L Alkaline Phosphatase 59 (38-126) U/L Lactate Dehydrogenase 826 H (313-618) U/L C-Reactive Protein 2.0 H (<1.0) mg/dL Total Protein 7.1 (6.3-8.2) g/dL Albumin 4.0 (3.5-5.0) g/dL Coronavirus (PCR) (Not Detectd) 12/24/20 12/24/20 Range/Units 16:49 16:49 WBC (3.8-10.6) k/uL RBC (3.80-5.40) m/uL Hgb (11.4-16.0) gm/dL Hct (34.0-46.0) % MCV (80.0-100.0) fL MCH (25.0-35.0) pg MCHC (31.0-37.0) g/dL RDW (11.5-15.5) % Plt Count (150-450) k/uL MPV Neutrophils % % Lymphocytes % % Monocytes % % Eosinophils % % Basophils % % Neutrophils # (1.3-7.7) k/uL Lymphocytes # (1.0-4.8) k/uL Monocytes # (0-1.0) k/uL Eosinophils # (0-0.7) k/uL Basophils # (0-0.2) k/uL PT (9.0-12.0) sec INR (<1.2) APTT (22.0-30.0) sec Sodium (137-145) mmol/L Potassium (3.5-5.1) mmol/L Chloride (98-107) mmol/L Carbon Dioxide (22-30) mmol/L Anion Gap mmol/L BUN (7-17) mg/dL Creatinine (0.52-1.04) mg/dL Est GFR (CKD-EPI)AfAm (>60 ml/min/1.73 sqM) Est GFR (CKD-EPI)NonAf (>60 ml/min/1.73 sqM) Glucose (74-99) mg/dL Plasma Lactic Acid [place] 0.7 (0.7-2.0) mmol/L Calcium (8.4-10.2) mg/dL Magnesium (1.6-2.3) mg/dL Total Bilirubin (0.2-1.3) mg/dL AST (14-36) U/L ALT (4-34) U/L Alkaline Phosphatase (38-126) U/L Lactate Dehydrogenase (313-618) U/L C-Reactive Protein (<1.0) mg/dL Total Protein (6.3-8.2) g/dL Albumin (3.5-5.0) g/dL Coronavirus (PCR) Not Detected (Not Detectd) - Radiology Data Radiology results: image reviewed (Chest x-ray shows no acute process) Disposition Clinical Impression: COPD exacerbation Disposition: ADMITTED IP TO THIS HOSP Is patient prescribed a controlled substance at d/c from ED?: No Referrals: Gilbert Perkins [Primary Care Provider] - 1-2 days Decision Time: 18:44
[2020-12-24 17:04] LABS: Basophils % (A) 0 %; Eosinophils % (A) 0 %; HCT 38.8 % (34.0-46.0); HGB 12.8 gm/dL (11.4-16.0); Lymphocytes % (A) 15 %; MCH 30.6 pg (25.0-35.0); MCHC 33.1 g/dL (31.0-37.0); MCV 92.5 fL (80.0-100.0); Mean Platelet Volume 9.4; Monocytes # (A) 0.4 k/uL (0-1.0); Monocytes % (A) 6 %; Neutrophils # (A) 5.1 k/uL (1.3-7.7); Neutrophils % (A) 77 %; Platelet Count 201 k/uL (150-450); RBC 4.19 m/uL (3.80-5.40); RDW 15.1 % (11.5-15.5); WBC 6.6 k/uL (3.8-10.6)
[2020-12-24 17:14] LABS: ALT 8 U/L (4-34); AST 39 U/L (14-36); African American GFR (CKD) >90 (>60 ml/min/1.73 sqM); Alkaline Phosphatase 59 U/L (38-126); Anion Gap 8 mmol/L; Blood Urea Nitrogen 7 mg/dL (7-17); Calcium 8.8 mg/dL (8.4-10.2); Carbon Dioxide 17 mmol/L (22-30); Chloride 115 mmol/L (98-107); Glucose 102 mg/dL (74-99); LDH 826 U/L (313-618); Magnesium 1.7 mg/dL (1.6-2.3); Non-African American GFR(CKD) 89 (>60 ml/min/1.73 sqM); Sodium 140 mmol/L (137-145); Total Bilirubin 0.6 mg/dL (0.2-1.3); Total Protein 7.1 g/dL (6.3-8.2)
[2020-12-24 17:20] LABS: Partial Thromboplastin Time 30.1 sec (22.0-30.0); Prothrombin Time 10.4 sec (9.0-12.0)
--- NOTE | 2020-12-24 17:26 | XR ---
EXAMINATION TYPE: XR chest 1V portable DATE OF EXAM: 12/24/2020 COMPARISON: 10/25/2020 HISTORY: Chest pain TECHNIQUE: Single view FINDINGS: Heart is normal. Lungs are clear of consolidation. There are no hilar masses. Costophrenic angles are clear. There are chest leads. Bony thorax is intact. IMPRESSION: No active cardiopulmonary disease. Normal heart. No change.
[2020-12-24] MEDS ORDERED: IPRATROPIUM-ALBUTEROL 3 ML NEB INHALATION STA (17:28)
[2020-12-24] MEDS ORDERED: methylPREDNISolone SOD SUCCI 125 MG/2 ML VIAL IV STA (18:44)
[2020-12-24] MEDS ORDERED: IPRATROPIUM-ALBUTEROL 3 ML NEB INHALATION PRN (18:44)
[2020-12-24] MEDS ORDERED: ALBUTEROL HFA INHALER INHALATION SCH (20:00)
[2020-12-24] MEDS ORDERED: IPRATROPIUM-ALBUTEROL 3 ML NEB INHALATION SCH (20:00)
--- NOTE | 2020-12-24 22:36 | P.HPIM ---
History of Present Illness H&P Date: 12/24/20 The patient is a 60-year-old female with a PMH of COPD, hypertension, and hyperlipidemia who presents to the emergency room with complaints of cough productive of yellow phlegm, body aches, photophobia, and shortness of breath. The patient reports that her symptoms started roughly 2-3 days ago after she was exposed to a friend who had RSV. The patient notes that her friend had exactly the same symptoms as she which she is having currently. Complained of diffuse body aches, cough, with phlegm greater than usual productive of hall to white phlegm, photophobia for the past 24 hours, and chills. Denied headaches, chest pain, lower extremity pain or swelling. Also denied diaphoresis, nausea, vomiting, abdominal pain. Chest x-ray in the emergency room was unremarkable with EKG showing normal sinus rhythm at [address]/T-wave changes noted as reviewed by me. Laboratory evaluation was also reviewed and was positive for RSV, with elevated LDH and CRP. Review of systems: Pertinent positives and negatives as discussed in HPI, a complete review of systems was performed and all other systems are negative. Physical examination: General: non toxic, no distress, appears at stated age, normal weight Derm: no unusual rashes/lesions no unusual ecchymoses, warm, dry Head: atraumatic, normocephalic, symmetric Eyes: EOMI, no lid lag, anicteric sclera, pupils equal round reactive to light ENT: Nose and ears atraumatic, no thrush, no pharyngeal erythema Neck: No thyromegaly, no cervical lymphadenopathy, trachea midline, supple Mouth: no lip lesion, mucus membranes moist Cardiovascular: S1S2 reg, no murmur, positive posterior tibial pulse bilateral, no edema, capillary refill less than 2 seconds Lungs: Somewhat poor air entry bilaterally with mild expiratory wheezing, no accessory muscle use Abdominal: soft, nontender to palpation, no guarding, no appreciable organomegaly, normal bowel sounds Ext: no gross muscle atrophy, muscle strength 4 out of 5 in all 4 extremities grossly, no contractures, Neuro: CN II-XI grossly intact, light touch intact all 4 extremities, finger to nose within normal limits, Psych: Alert, oriented, appropriate affect Assessment/plan Acute COPD exacerbation, suspected secondary to RSV infection -DuoNeb's -Prednisone oral for now -Supplemental oxygen Chronic conditions: Hypertension, hyperlipidemia -Continue with home meds DVT prophylaxis -Heparin subq The patient is admitted with an anticipated less than 2 midnight stay for evaluation of acute COPD CODE STATUS: Full Code Discussed with: Patient Anticipated discharge date: in am Anticipated discharge place: Home A total of 35 minutes was spent on the care of this complex patient more than 50% of the time was spent in counseling and care coordination. Past Medical History Past Medical History: GERD/Reflux, GI Bleed, Hypertension History of Any Multi-Drug Resistant Organisms: None Reported Past Surgical History: Section, Cholecystectomy, Hysterectomy, Tonsillectomy Past Anesthesia/Blood Transfusion Reactions: No Reported Reaction Past Psychological History: Anxiety, Depression Smoking Status: Current every day smoker Past Alcohol Use History: None Reported Past Drug Use History: Marijuana - Past Family History Father Family Medical History: Asthma Medications and Allergies Home Medications Medication Instructions Recorded Confirmed Type Baclofen [Lioresal] 10 mg PO Q8H PRN 03/02/20 12/24/20 History Dicyclomine HCl 20 mg PO TID PRN 03/02/20 12/24/20 History Pramipexole [Mirapex] 0.125 mg PO HS 03/02/20 12/24/20 History busPIRone HCl [Buspar] 10 mg PO Q8H 03/02/20 12/24/20 History Escitalopram [Lexapro] 20 mg PO DAILY 06/27/20 12/24/20 History Fluticasone/Salmeterol [Advair 1 puff INHALATION RT-BID 06/27/20 12/24/20 Hist ory 250-50 Diskus] Ibuprofen [Motrin] 800 mg PO Q12H PRN 06/27/20 12/24/20 History Omeprazole 20 mg PO BID 06/27/20 12/24/20 History Tiotropium [place] [Spiriva] 1 cap INHALATION RT-DAILY 06/27/20 12/24/20 History Albuterol Inhaler [Ventolin Hfa 2 puff INHALATION RT-QID PRN 12/24/20 12/24/20 History Inhaler] Atorvastatin [Lipitor] 10 mg PO HS 12/24/20 12/24/20 History Hydrochlorothiazide 12.5 mg PO DAILY 12/24/20 12/24/20 History [hydroCHLOROthiazide] Allergies Allergy/AdvReac Type Severity Reaction Status Date / Time cephalexin [[facility] Allergy Rash/Hives Verified 12/24/20 16:40 Penicillins Allergy Rash/Hives Verified 12/24/20 16:40 Physical Exam Vitals: Vital Signs Temp Pulse Resp BP Pulse Ox 12/24/20 20:00 75 18 103/61 97 12/24/20 18:22 84 12/24/20 18:10 77 12/24/20 18:00 81 18 128/77 95 12/24/20 17:00 84 18 131/70 95 12/24/20 16:33 88 18 136/85 95 12/24/20 15:36 22 12/24/20 15:31 99 F 98 22 153/107 92 L Intake and Output 12/24/20 12/24/20 12/24/20 06:59 14:59 22:59 Other: Weight 54.885 kg Results CBC & Chem 7: 12/24/20 16:49 12/24/20 16:49 Labs: Abnormal Lab Results - Last 24 Hours (Table) 12/24/20 12/24/20 12/24/20 Range/Units 16:49 16:49 20:04 APTT 30.1 H (22.0-30.0) sec Chloride 115 H (98-107) mmol/L Carbon Dioxide 17 L (22-30) mmol/L Glucose 102 H (74-99) mg/dL AST 39 H (14-36) U/L Lactate Dehydrogenase 826 H (313-618) U/L C-Reactive Protein 2.0 H (<1.0) mg/dL RSV (PCR) Positive H (Negative)
[2020-12-25] MEDS ORDERED: methylPREDNISolone SOD SUCCI 125 MG/2 ML VIAL IV SCH
[2020-12-25] MEDS: HEPARIN SODIUM,PORCINE/PF 5,000 UNIT/0.5 ML SYRINGE SQ SCH ×3 (00:43→16:24)
[2020-12-25] MEDS: predniSONE 20 MG TAB PO SCH (07:54)
[2020-12-25] MEDS: hydroCHLOROthiazide 12.5 MG CAP PO SCH (07:54)
[2020-12-25] MEDS: ESCITALOPRAM 20 MG TAB PO SCH (07:54)
[2020-12-25] MEDS ORDERED: NON FORMULARY DRUG (Tiotropium Bromide [Spiriva] 18 MCG Cap.W.Dev) INHALATION SCH (08:00)
[2020-12-25] MEDS: SYMBICORT 80-4.5 MCG INHALER INHALATION SCH ×2 (08:35→20:53)
[2020-12-25] MEDS: IPRATROPIUM-ALBUTEROL 3 ML NEB INHALATION SCH ×4 (08:35→20:53)
[2020-12-25] MEDS ORDERED: BUTA/APAP/CAF/COD 50-325-40-30 CAP PO STA (09:35)
--- NOTE | 2020-12-25 16:57 | P.PN ---
Subjective Patient is complaining of severe cough is causing her headache and repeat pain. Shortness of breath is about the same compared to yesterday. Objective - Vital Signs Vital signs: Vital Signs Temp 97.7 F 12/25/20 15:00 Pulse 84 12/25/20 16:11 Resp 20 12/25/20 15:58 BP 100/66 12/25/20 15:00 Pulse Ox 97 12/25/20 16:10 Intake & Output 12/24/20 12/25/20 12/25/20 18:59 06:59 18:59 Intake Total 1440 Balance 1440 Weight 54.885 kg 54.885 kg Intake: Oral 1440 Other: Voiding Method Toilet # Voids 2 - Exam General: The patient is awake and alert, in no distress Eye: there is normal conjunctiva bilaterally. Neck: The neck is supple, there is no JVD. Cardiovascular: Normal S1-S2, no S3-S4, no murmurs. Respiratory: Lungs clear to auscultation bilaterally Gastrointestinal: Abdomen is soft, nontender Musculoskeletal: There is no pedal edema. Neurological:. Speech is normal. Skin: Skin is warm and dry - Labs CBC & Chem 7: 12/24/20 16:49 12/24/20 16:49 Labs: Abnormal Lab Results - Last 24 Hours (Table) 12/24/20 12/24/20 12/24/20 Range/Units 16:49 16:49 20:04 APTT 30.1 H (22.0-30.0) sec Chloride 115 H (98-107) mmol/L Carbon Dioxide 17 L (22-30) mmol/L Glucose 102 H (74-99) mg/dL AST 39 H (14-36) U/L Lactate Dehydrogenase 826 H (313-618) U/L C-Reactive Protein 2.0 H (<1.0) mg/dL RSV (PCR) Positive H (Negative) Assessment and Plan Assessment: Acute COPD exacerbation secondary to RSV infection -DuoNeb's -Prednisone oral -Supplemental oxygen Chronic conditions: Hypertension, hyperlipidemia -Continue with home meds DVT prophylaxis -Heparin subq CODE STATUS: Full Code Discussed with: Patient Anticipated discharge date: in am Anticipated discharge place: Home A total of 35 minutes was spent on the care of this complex patient more than 50% of the time was spent in counseling and care coordination.
[2020-12-25] MEDS: ATORVASTATIN 10 MG TAB PO SCH (21:20)
[2020-12-26] MEDS: HEPARIN SODIUM,PORCINE/PF 5,000 UNIT/0.5 ML SYRINGE SQ SCH ×3 (00:51→17:08)
[2020-12-26] MEDS: BUTALB/APAP/CAFF 50-325-40MG TAB PO PRN ×4 (00:57→22:49)
[2020-12-26] MEDS: guaiFENesin SYRUP 100MG/5ML 200 MG/10 ML CUP PO PRN (02:50)
[2020-12-26] MEDS: predniSONE 20 MG TAB PO SCH (07:07)
[2020-12-26] MEDS: ESCITALOPRAM 20 MG TAB PO SCH (07:07)
[2020-12-26] MEDS: hydroCHLOROthiazide 12.5 MG CAP PO SCH (07:07)
[2020-12-26] MEDS: IPRATROPIUM-ALBUTEROL 3 ML NEB INHALATION SCH ×4 (07:51→20:54)
[2020-12-26] MEDS: SYMBICORT 80-4.5 MCG INHALER INHALATION SCH ×2 (07:51→20:54)
--- NOTE | 2020-12-26 11:41 | P.DS ---
Providers Date of admission: 12/24/20 18:45 Expected date of discharge: 12/26/20 Attending physician: Christin Scott DO Primary care physician: Gilbert Perkins [facility] Course: This is a 60-year-old female with past medical history significant for underlying COPD, hypertension, and hyperlipidemia that presented to the emergency room with worsening shortness of breath and cough. Patient was evaluated in the ER and was found to have acute COPD exacerbation with acute hypoxic respiratory failure. She also tested positive for RSV. She was placed on observation and was treated with systemic steroids and bronchodilators. Her overall condition improved significantly. COVID-19 screen was negative. On the day of discharge, was weaned off of oxygen and was able to ambulate on room air with O2 sats around 92%. Patient will be discharged home in a stable condition. She will finish short course of prednisone 40 mg daily for 3 days. She will follow-up with her PCP as directed. For further details about this hospitalization please refer to the electronic chart. Physical exam: General: The patient is awake and alert, in no distress Eye: there is normal conjunctiva bilaterally. Neck: The neck is supple, there is no JVD. Cardiovascular: Normal S1-S2, no S3-S4, no murmurs. Respiratory: Lungs clear to auscultation bilaterally Gastrointestinal: Abdomen is soft, nontender Musculoskeletal: There is no pedal edema. Neurological:. Speech is normal. Skin: Skin is warm and dry Plan - Discharge Summary New Discharge Prescriptions: New guaiFENesin SYRUP 100MG/5ML [Robitussin] 200 mg PO Q6HR PRN #200 ml PRN Reason: Cough predniSONE [Deltasone] 40 mg PO DAILY #6 tab Continue Pramipexole [Mirapex] 0.125 mg PO HS Dicyclomine HCl 20 mg PO TID PRN PRN Reason: ibs Baclofen [Lioresal] 10 mg PO Q8H PRN PRN Reason: Muscle Pain busPIRone HCl [Buspar] 10 mg PO Q8H Omeprazole 20 mg PO BID Tiotropium [place] [Spiriva] 1 cap INHALATION RT-DAILY Escitalopram [Lexapro] 20 mg PO DAILY Ibuprofen [Motrin] 800 mg PO Q12H PRN PRN Reason: Pain Fluticasone/Salmeterol [Advair 250-50 Diskus] 1 puff INHALATION RT-BID Albuterol Inhaler [Ventolin Hfa Inhaler] 2 puff INHALATION RT-QID PRN PRN Reason: Shortness Of Breath Atorvastatin [Lipitor] 10 mg PO HS Hydrochlorothiazide [hydroCHLOROthiazide] 12.5 mg PO DAILY Discharge Medication List Baclofen [Lioresal] 10 mg PO Q8H PRN 03/02/20 [History] Dicyclomine HCl 20 mg PO TID PRN 03/02/20 [History] Pramipexole [Mirapex] 0.125 mg PO HS 03/02/20 [History] busPIRone HCl [Buspar] 10 mg PO Q8H 03/02/20 [History] Escitalopram [Lexapro] 20 mg PO DAILY 06/27/20 [History] Fluticasone/Salmeterol [Advair 250-50 Diskus] 1 puff INHALATION RT-BID 06/27/20 [History] Ibuprofen [Motrin] 800 mg PO Q12H PRN 06/27/20 [History] Omeprazole 20 mg PO BID 06/27/20 [History] Tiotropium [place] [Spiriva] 1 cap INHALATION RT-DAILY 06/27/20 [History] Albuterol Inhaler [Ventolin Hfa Inhaler] 2 puff INHALATION RT-QID PRN 12/24/20 [History] Atorvastatin [Lipitor] 10 mg PO HS 12/24/20 [History] Hydrochlorothiazide [hydroCHLOROthiazide] 12.5 mg PO DAILY 12/24/20 [History] guaiFENesin SYRUP 100MG/5ML [Robitussin] 200 mg PO Q6HR PRN #200 ml 12/26/20 [Rx] predniSONE [Deltasone] 40 mg PO DAILY #6 tab 12/26/20 [Rx] Follow up Appointment(s)/Referral(s): Gilbert Perkins [Primary Care Provider] - 1-2 days Discharge Disposition: HOME SELF-CARE
[2020-12-26] MEDS ORDERED: MORPHINE SULFATE 2 MG/ML SYRINGE IVP STA (12:16)
[2020-12-26] MEDS: ATORVASTATIN 10 MG TAB PO SCH (22:13)
[2020-12-27] MEDS: HEPARIN SODIUM,PORCINE/PF 5,000 UNIT/0.5 ML SYRINGE SQ SCH ×4 (00:48→23:54)
[2020-12-27] MEDS: SYMBICORT 80-4.5 MCG INHALER INHALATION SCH ×2 (07:20→20:48)
[2020-12-27] MEDS: IPRATROPIUM-ALBUTEROL 3 ML NEB INHALATION SCH ×4 (07:20→20:48)
[2020-12-27] MEDS: BUTALB/APAP/CAFF 50-325-40MG TAB PO PRN (08:32)
[2020-12-27] MEDS: guaiFENesin SYRUP 100MG/5ML 200 MG/10 ML CUP PO PRN (08:32)
[2020-12-27] MEDS: predniSONE 20 MG TAB PO SCH (08:33)
[2020-12-27] MEDS: hydroCHLOROthiazide 12.5 MG CAP PO SCH (08:33)
[2020-12-27] MEDS: ESCITALOPRAM 20 MG TAB PO SCH (08:33)
[2020-12-27 14:17] LABS: African American GFR (CKD) 83 (>60 ml/min/1.73 sqM); Anion Gap 12 mmol/L; Blood Urea Nitrogen 19 mg/dL (7-17); Calcium 10.1 mg/dL (8.4-10.2); Carbon Dioxide 18 mmol/L (22-30); Chloride 107 mmol/L (98-107); Glucose 166 mg/dL (74-99); Non-African American GFR(CKD) 72 (>60 ml/min/1.73 sqM); Sodium 137 mmol/L (137-145)
[2020-12-27 14:27] LABS: Potassium 2.6 mmol/L (3.5-5.1)
[2020-12-27] MEDS ORDERED: Potassium Replacement Protocol 1 EACH MISC MISCELLANE PRN (14:44)
--- NOTE | 2020-12-27 15:15 | P.PN ---
Subjective Patient discharge was canceled last night as patient did not have a ride. This morning, patient is complaining of decreased urine output. A bladder scan was done showing no significant PVR. Nursing staff reassured me that patient went to the bathroom multiple times throughout the day and is not clear why patient is saying that she is only urinating once a day. Lab work was obtained to evaluate kidney function and noted significant hypokalemia with potassium is 2.6 Objective - Vital Signs Vital signs: Vital Signs Temp 97.5 F L 12/27/20 14:00 Pulse 53 L 12/27/20 14:00 Resp 16 12/27/20 14:00 BP 127/83 12/27/20 14:00 Pulse Ox 96 12/27/20 14:00 Intake & Output 12/26/20 12/27/20 12/27/20 18:59 06:59 18:59 Other: # Voids 2 1 - Exam General: The patient is awake and alert, in no distress Eye: there is normal conjunctiva bilaterally. Neck: The neck is supple, there is no JVD. Cardiovascular: Normal S1-S2, no S3-S4, no murmurs. Respiratory: Lungs clear to auscultation bilaterally Gastrointestinal: Abdomen is soft, nontender Musculoskeletal: There is no pedal edema. Neurological:. Speech is normal. Skin: Skin is warm and dry - Labs CBC & Chem 7: 12/24/20 16:49 12/27/20 13:11 Labs: Abnormal Lab Results - Last 24 Hours (Table) 12/27/20 Range/Units 13:11 Potassium 2.6 L* (3.5-5.1) mmol/L Carbon Dioxide 18 L (22-30) mmol/L BUN 19 H (7-17) mg/dL Glucose 166 H (74-99) mg/dL Microbiology - Last 24 Hours (Table) 12/24/20 16:49 Blood Culture - Preliminary Blood No Growth after 48 hours 12/24/20 16:49 Blood Culture - Preliminary Blood No Growth after 48 hours Assessment and Plan Assessment: Acute COPD exacerbation secondary to RSV infection -DuoNeb's -Prednisone oral -Supplemental oxygen Severe hypokalemia -Exact etiology unclear. Replacement ordered. Repeat lab work in the morning. Chronic conditions: Hypertension, hyperlipidemia -Continue with home meds DVT prophylaxis -Heparin subq
[2020-12-27] MEDS: POTASSIUM CHLORIDE ER 20 MEQ TAB.ER PO SCH ×2 (15:35→17:43)
[2020-12-27] MEDS: ATORVASTATIN 10 MG TAB PO SCH (21:49)
[2020-12-28] MEDS ORDERED: Potassium Replacement Protocol 1 EACH MISC MISCELLANE PRN ×2 (01:21→06:35)
[2020-12-28] MEDS: POTASSIUM CHLORIDE ER 20 MEQ TAB.ER PO SCH ×3 (01:43→09:11)
[2020-12-28] MEDS: BUTALB/APAP/CAFF 50-325-40MG TAB PO PRN ×2 (04:38→10:57)
[2020-12-28] MEDS: guaiFENesin SYRUP 100MG/5ML 200 MG/10 ML CUP PO PRN ×2 (04:38→09:11)
[2020-12-28 04:52] LABS: African American GFR (CKD) >90 (>60 ml/min/1.73 sqM); Anion Gap 9 mmol/L; Blood Urea Nitrogen 20 mg/dL (7-17); Calcium 9.9 mg/dL (8.4-10.2); Carbon Dioxide 18 mmol/L (22-30); Chloride 112 mmol/L (98-107); Glucose 81 mg/dL (74-99); Non-African American GFR(CKD) 84 (>60 ml/min/1.73 sqM); Potassium 3.3 mmol/L (3.5-5.1); Sodium 139 mmol/L (137-145)
[2020-12-28 07:37] VITALS: BP 117/72; RESP 16; TEMP 98.2
[2020-12-28] MEDS: SYMBICORT 80-4.5 MCG INHALER INHALATION SCH (08:26)
[2020-12-28] MEDS: IPRATROPIUM-ALBUTEROL 3 ML NEB INHALATION SCH ×2 (08:26→12:13)
[2020-12-28] MEDS: predniSONE 20 MG TAB PO SCH (09:11)
[2020-12-28] MEDS: ESCITALOPRAM 20 MG TAB PO SCH (09:11)
[2020-12-28] MEDS: hydroCHLOROthiazide 12.5 MG CAP PO SCH (09:11)
[2020-12-28] MEDS: HEPARIN SODIUM,PORCINE/PF 5,000 UNIT/0.5 ML SYRINGE SQ SCH (09:12)
--- NOTE | 2020-12-28 10:58 | P.DS ---
Providers Date of admission: 12/27/20 15:57 Expected date of discharge: 12/28/20 Attending physician: Christin Scott DO Primary care physician: Gilbert Gregorio [facility] Course: This is a 60-year-old female with past medical history significant for underlying COPD, hypertension, and hyperlipidemia that presented to the emergency room with worsening shortness of breath and cough. Patient was evaluated in the ER and was found to have acute COPD exacerbation with acute hypoxic respiratory failure. She also tested positive for RSV. She was placed on observation and was treated with systemic steroids and bronchodilators. Her overall condition improved significantly. COVID-19 screen was negative. She was weaned off of oxygen and was able to ambulate on room air with O2 sats around 92%. Patient was supposed to be discharged on 12/27 that her lab work shows significant hypokalemia that was replaced. Patient is not on any diuretics. Patient has been refusing to be discharged for a few days as she did not have a ride. Today, she was yelling and screaming that she is not ready to go home because nobody is available to pick her up. We offered her a taxi past provided by the hospital. Patient will be discharged home in a stable condition. She will finish short course of prednisone 40 mg daily for 3 days. She will follow-up with her PCP as directed. For further details about this hospitalization please refer to the electronic chart. Physical exam: General: The patient is awake and alert, in no distress Eye: there is normal conjunctiva bilaterally. Neck: The neck is supple, there is no JVD. Cardiovascular: Normal S1-S2, no S3-S4, no murmurs. Respiratory: Lungs clear to auscultation bilaterally Gastrointestinal: Abdomen is soft, nontender Musculoskeletal: There is no pedal edema. Neurological:. Speech is normal. Skin: Skin is warm and dry Plan - Discharge Summary New Discharge Prescriptions: New guaiFENesin [place]YR[place] 100MG/5ML [Robitussin] 200 mg PO Q6HR PRN #200 ml PRN Reason: Cough predniSONE [Deltasone] 40 mg PO DAILY #6 tab Continue Pramipexole [Mirapex] 0.125 mg PO HS Dicyclomine HCl 20 mg PO TID PRN PRN Reason: ibs Baclofen [Lioresal] 10 mg PO Q8H PRN PRN Reason: Muscle Pain busPIRone HCl [Buspar] 10 mg PO Q8H Omeprazole 20 mg PO BID Tiotropium [place] [Spiriva] 1 cap INHALATION RT-DAILY Escitalopram [Lexapro] 20 mg PO DAILY Ibuprofen [Motrin] 800 mg PO Q12H PRN PRN Reason: Pain Fluticasone/Salmeterol [Advair 250-50 Diskus] 1 puff INHALATION RT-BID Albuterol Inhaler [Ventolin Hfa Inhaler] 2 puff INHALATION RT-QID PRN PRN Reason: Shortness Of Breath Atorvastatin [Lipitor] 10 mg PO HS Hydrochlorothiazide [hydroCHLOROthiazide] 12.5 mg PO DAILY Discharge Medication List Baclofen [Lioresal] 10 mg PO Q8H PRN 03/02/20 [History] Dicyclomine HCl 20 mg PO TID PRN 03/02/20 [History] Pramipexole [Mirapex] 0.125 mg PO HS 03/02/20 [History] busPIRone HCl [Buspar] 10 mg PO Q8H 03/02/20 [History] Escitalopram [Lexapro] 20 mg PO DAILY 06/27/20 [History] Fluticasone/Salmeterol [Advair 250-50 Diskus] 1 puff INHALATION RT-BID 06/27/20 [History] Ibuprofen [Motrin] 800 mg PO Q12H PRN 06/27/20 [History] Omeprazole 20 mg PO BID 06/27/20 [History] Tiotropium [place] [Spiriva] 1 cap INHALATION RT-DAILY 06/27/20 [History] Albuterol Inhaler [Ventolin Hfa Inhaler] 2 puff INHALATION RT-QID PRN 12/24/20 [History] Atorvastatin [Lipitor] 10 mg PO HS 12/24/20 [History] Hydrochlorothiazide [hydroCHLOROthiazide] 12.5 mg PO DAILY 12/24/20 [History] guaiFENesin [place] 100MG/5ML [Robitussin] 200 mg PO Q6HR PRN #200 ml 12/26/20 [Rx] predniSONE [Deltasone] 40 mg PO DAILY #6 tab 12/26/20 [Rx] Follow up Appointment(s)/Referral(s): Gilbert Perkins [Primary Care Provider] - 12/31/20 2:00 pm Patient Instructions/Handouts: Respiratory Syncytial Virus (DC), COPD (Chronic Obstructive Pulmonary Disease) (DC)
[2020-12-28] MEDS ORDERED: BENZONATATE 100 MG CAP PO STA (11:08)
[2020-12-28 12:16] VITALS: PULSE 88
== END 2020-12-28 14:08 | disposition home or self-care (01) | DRG 190 ==
LOC: EC 15:23 → 6NMEDSUR 18:45 → 4SSUR 12-25 03:02 → OBSVTOIN 12-27 15:57
PROVIDERS: ADMIT Internal Medicine; ATTEND Internal Medicine
DX: J44.1 Chronic obstructive pulmonary disease with (acute) exacerbation (principal); J96.01 Acute respiratory failure with hypoxia; F41.9 Anxiety disorder, unspecified; I10 Essential (primary) hypertension; Z20.822 Contact with and (suspected) exposure to COVID-19; Z79.899 Other long term (current) drug therapy; Z90.710 Acquired absence of both cervix and uterus; Z82.5 Family history of asthma and other chronic lower respiratory diseases; F17.200 Nicotine dependence, unspecified, uncomplicated; E87.6 Hypokalemia; E78.5 Hyperlipidemia, unspecified; B97.4 Respiratory syncytial virus as the cause of diseases classified elsewhere; K21.9 Gastro-esophageal reflux disease without esophagitis; R74.02 Elevation of levels of lactic acid dehydrogenase [LDH]; F32.9 Major depressive disorder, single episode, unspecified
CPT/HCPCS: 36415; 71045; 80048; 80053; 82728; 83605; 83615; 83735; 84132; 84145; 84484; 85025; 85610; 85730; 86140; 87040; 87502; 87634; 87635; 93005; 94640; 94760; 96372; 96374; 96376; 99285

== ENCOUNTER 2021-01-14 12:24 | Emergency (ER) | payer OTHER ==
[2021-01-14 15:05] VITALS: BP 138/85; PULSE 72; RESP 18; TEMP 97.4
[2021-01-14 15:33] LABS: Anisocytosis Slight; Basophils % (A) 1 %; Eosinophils % (A) 0 %; HCT 38.5 % (34.0-46.0); HGB 12.6 gm/dL (11.4-16.0); Lymphocytes # (A) 2.6 k/uL (1.0-4.8); Lymphocytes % (A) 28 %; MCH 30.5 pg (25.0-35.0); MCHC 32.6 g/dL (31.0-37.0); MCV 93.8 fL (80.0-100.0); Monocytes # (A) 0.7 k/uL (0-1.0); Monocytes % (A) 7 %; Neutrophils # (A) 5.7 k/uL (1.3-7.7); Neutrophils % (A) 62 %; Platelet Count 301 k/uL (150-450); RBC 4.11 m/uL (3.80-5.40); RDW 16.8 % (11.5-15.5); WBC 9.2 k/uL (3.8-10.6)
[2021-01-14 15:45] LABS: Albumin 4.2 g/dL (3.5-5.0); Calcium 9.7 mg/dL (8.4-10.2); Potassium 2.9 mmol/L (3.5-5.1); Total Bilirubin 0.3 mg/dL (0.2-1.3)
== END 2021-01-14 19:06 | disposition left against medical advice (07) ==
LOC: EC 12:24
DX: R79.9 Abnormal finding of blood chemistry, unspecified (principal); Z53.21 Procedure and treatment not carried out due to patient leaving prior to being seen by health care provider
CPT/HCPCS: 36415; 80053; 85025; 93005; 99499

== ENCOUNTER 2021-06-24 15:19 | Emergency (ER) | payer OTHER ==
[2021-06-24 15:45] VITALS: RESP 16
[2021-06-24] MEDS ORDERED: MORPHINE SULFATE 4 MG/ML SYRINGE IVP STA (20:40)
[2021-06-24] MEDS ORDERED: SODIUM CHLORIDE 0.9% 1,000 ML IV STA (20:40)
--- NOTE | 2021-06-24 20:48 | ED ---
GI Bleed HPI - General Chief complaint: GI Bleed Stated complaint: Abd pain-sent by Dr. Perkins Time Seen by Provider: 06/24/21 20:34 Source: patient, RN notes reviewed Mode of arrival: ambulatory Limitations: no limitations - History of Present Illness Initial comments: This is a 61-year-old female who presents to the emergency department for lower abdominal pain and bloody stools for 10 days. Stools are described as primarily being loose and black with some red streaks. States that the lower abdomen is painful and she describes it as cramping. Also reports feeling weak. She does have a known history of peptic ulcer disease, colitis, and hemorrhoids. She was evaluated in the emergency department on 10/25/20 for similar problems. She was advised at that time to follow up with an outpatient colonoscopy and EGD for further evaluation of ongoing symptoms. She had a colonoscopy and EGD in February of this year. Patient states that this revealed no abnormalities. Denies any NSAID use. MD complaint: melena, blood streaked stool Onset/Timin -: days(s) Quality: cramping Associated Symptoms: abdominal pain - Related Data Home Medications Medication Instructions Recorded Confirmed Pramipexole [Mirapex] 0.125 mg PO HS 03/02/20 06/24/21 busPIRone HCl [Buspar] 10 mg PO Q8H 03/02/20 06/24/21 Escitalopram [Lexapro] 20 mg PO DAILY 06/27/20 06/24/21 Fluticasone/Salmeterol [Advair 1 puff INHALATION RT-BID 06/27/20 06/24/21 250-50 Diskus] Omeprazole 20 mg PO BID 06/27/20 06/24/21 Atorvastatin [Lipitor] 10 mg PO HS 12/24/20 06/24/21 Acetaminophen [Tylenol] 1,000 mg PO Q6H PRN 06/24/21 06/24/21 Fenofibrate Nanocrystallized 145 mg PO DAILY 06/24/21 06/24/21 [Fenofibrate] Allergies Allergy/AdvReac Type Severity Reaction Status Date / Time cephalexin [From Keflex] Allergy Rash/Hives Verified 06/24/21 21:22 Penicillins Allergy Rash/Hives Verified 06/24/21 21:22 Review of Systems ROS Statement: Those systems with pertinent positive or pertinent negative responses have been documented in the HPI. ROS Other: All systems not noted in ROS Statement are negative. Constitutional: Reports: weakness. Denies: fever, chills ENT: Denies: ear pain, throat pain Respiratory: Denies: cough, dyspnea Cardiovascular: Denies: chest pain, palpitations Gastrointestinal: Reports: abdominal pain, hematochezia. Denies: nausea, vomiting, diarrhea Genitourinary: Denies: urgency, dysuria Musculoskeletal: Denies: back pain Skin: Denies: rash Neurological: Denies: headache Past Medical History Past Medical History: GERD/Reflux, GI Bleed, Hypertension Additional Past Medical History / Comment(s): hiatal hernia History of Any Multi-Drug Resistant Organisms: None Reported Past Surgical History: Section, Cholecystectomy, Hysterectomy, Tonsillectomy Additional Past Surgical History / Comment(s): Hemrroidectomy Past Anesthesia/Blood Transfusion Reactions: No Reported Reaction Past Psychological History: Anxiety, Depression Smoking Status: Current every day smoker Past Alcohol Use History: Rare Past Drug Use History: Marijuana - Past Family History Father Family Medical History: Asthma General Exam Limitations: no limitations General appearance: alert, in distress Head exam: Present: atraumatic, normocephalic, normal inspection Respiratory exam: Present: normal lung sounds bilaterally. Absent: respiratory distress, wheezes, rales, rhonchi, stridor Cardiovascular Exam: Present: regular rate, normal rhythm, normal heart sounds. Absent: systolic murmur, diastolic murmur, rubs, gallop, clicks GI/Abdominal exam: Present: soft, tenderness (bilateral lower quadrants), normal bowel sounds. Absent: distended, guarding, rebound, rigid Neurological exam: Present: alert, oriented X3, CN II-XII intact Psychiatric exam: Present: normal affect, normal mood Skin exam: Present: warm, dry, intact, normal color. Absent: rash Course Vital Signs 06/24/21 06/24/21 15:43 21:12 Temperature 97.5 F L Pulse Rate 84 72 Respiratory 16 16 Rate Blood Pressure 137/86 148/89 O2 Sat by Pulse 96 98 Oximetry Medical Decision Making - Medical Decision Making This is a 61-year-old female who presents to the emergency department for lower abdominal pain and bloody stools. Lab work revealed no actionable findings. Computed tomography scan of the abdomen and pelvis obtained, revealing no acute changes. Because the patient does have some noted streaks of red blood, will avoid the occult blood test at this time, as it would be positive regardless. P atient advised that there is not a clear etiology of her symptoms. We were able to control her pain in the emergency department and she is stable for discharge home. She is advised to contact Dr. Alvarez's office tomorrow morning for an appointment to discuss ongoing symptoms. Patient seen and evaluated by both Dr. Carmen and myself. Return precautions reviewed in depth, the patient is instructed to return to the emergency department with any new, worsening, or concerning symptoms. Patient verbalized understanding. This case was discussed in detail with the attending ED physician. Presentation, findings, and treatment plan discussed in detail as well. - Lab Data Result diagrams: 06/24/21 21:12 06/24/21 21:12 Lab Results 06/24/21 06/24/21 06/24/21 Range/Units 21:12 21:12 21:12 WBC 8.0 (3.8-10.6) k/uL RBC 4.32 (3.80-5.40) m/uL Hgb 13.7 (11.4-16.0) gm/dL Hct 43.0 (34.0-46.0) % MCV 99.7 (80.0-100.0) fL MCH 31.8 (25.0-35.0) pg MCHC 31.9 (31.0-37.0) g/dL RDW 15.5 (11.5-15.5) % Plt Count 305 (150-450) k/uL MPV 8.7 Neutrophils % 58 % Lymphocytes % 34 % Monocytes % 5 % Eosinophils % 0 % Basophils % 0 % Neutrophils # 4.6 (1.3-7.7) k/uL Lymphocytes # 2.7 (1.0-4.8) k/uL Monocytes # 0.4 (0-1.0) k/uL Eosinophils # 0.0 (0-0.7) k/uL Basophils # 0.0 (0-0.2) k/uL Macrocytosis Slight PT 10.2 (9.0-12.0) sec INR 0.9 (<1.2) APTT 28.8 (22.0-30.0) sec Sodium 140 (137-145) mmol/L Potassium 3.8 (3.5-5.1) mmol/L Chloride 113 H (98-107) mmol/L Carbon Dioxide 20 L (22-30) mmol/L Anion Gap 7 mmol/L BUN 13 (7-17) mg/dL Creatinine 1.08 H (0.52-1.04) mg/dL Est GFR (CKD-EPI)AfAm 64 (>60 ml/min/1.73 sqM) Est GFR (CKD-EPI)NonAf 55 (>60 ml/min/1.73 sqM) Glucose 90 (74-99) mg/dL Plasma Lactic Acid Brayan (0.7-2.0) mmol/L Calcium 9.4 (8.4-10.2) mg/dL Magnesium 1.7 (1.6-2.3) mg/dL Total Bilirubin 0.5 (0.2-1.3) mg/dL AST 23 (14-36) U/L ALT 9 (4-34) U/L Alkaline Phosphatase 70 (38-126) U/L Total Protein 7.4 (6.3-8.2) g/dL Albumin 4.6 (3.5-5.0) g/dL Lipase 117 (23-300) U/L 06/24/21 Range/Units 21:12 WBC (3.8-10.6) k/uL RBC (3.80-5.40) m/uL Hgb (11.4-16.0) gm/dL Hct (34.0-46.0) % MCV (80.0-100.0) fL MCH (25.0-35.0) pg MCHC (31.0-37.0) g/dL RDW (11.5-15.5) % Plt Count (150-450) k/uL MPV Neutrophils % % Lymphocytes % % Monocytes % % Eosinophils % % Basophils % % Neutrophils # (1.3-7.7) k/uL Lymphocytes # (1.0-4.8) k/uL Monocytes # (0-1.0) k/uL Eosinophils # (0-0.7) k/uL Basophils # (0-0.2) k/uL Macrocytosis PT (9.0-12.0) sec INR (<1.2) APTT (22.0-30.0) sec Sodium (137-145) mmol/L Potassium (3.5-5.1) mmol/L Chloride (98-107) mmol/L Carbon Dioxide (22-30) mmol/L Anion Gap mmol/L BUN (7-17) mg/dL Creatinine (0.52-1.04) mg/dL Est GFR (CKD-EPI)AfAm (>60 ml/min/1.73 sqM) Est GFR (CKD-EPI)NonAf (>60 ml/min/1.73 sqM) Glucose (74-99) mg/dL Plasma Lactic Acid Brayan 0.7 (0.7-2.0) mmol/L Calcium (8.4-10.2) mg/dL Magnesium (1.6-2.3) mg/dL Total Bilirubin (0.2-1.3) mg/dL AST (14-36) U/L ALT (4-34) U/L Alkaline Phosphatase (38-126) U/L Total Protein (6.3-8.2) g/dL Albumin (3.5-5.0) g/dL Lipase (23-300) U/L - Radiology Data Radiology results: report reviewed, image reviewed Disposition Clinical Impression: Abdominal pain Disposition: HOME SELF-CARE Instructions (If sedation given, give patient instructions): Gastrointestinal Bleeding (ED), Abdominal Pain (ED) Additional Instructions: Return to the emergency department with any new, worsening, or concerning symptoms. Contact Dr. Alvarez's office for an appointment. Follow up with your primary care provider in 1 to 2 days. Is patient prescribed a controlled substance at d/c from ED?: No Referrals: Gilbert Perkins [Primary Care Provider] - 1-2 days Noemí Alvarez MD [STAFF PHYSICIAN] - 1-2 days
[2021-06-24 21:24] LABS: Basophils % (A) 0 %; Eosinophils % (A) 0 %; HGB 13.7 gm/dL (11.4-16.0); Lymphocytes # (A) 2.7 k/uL (1.0-4.8); Lymphocytes % (A) 34 %; MCH 31.8 pg (25.0-35.0); MCHC 31.9 g/dL (31.0-37.0); MCV 99.7 fL (80.0-100.0); Macrocytosis Slight; Mean Platelet Volume 8.7; Monocytes # (A) 0.4 k/uL (0-1.0); Monocytes % (A) 5 %; Neutrophils # (A) 4.6 k/uL (1.3-7.7); Neutrophils % (A) 58 %; Platelet Count 305 k/uL (150-450); RBC 4.32 m/uL (3.80-5.40); RDW 15.5 % (11.5-15.5)
[2021-06-24 21:31] LABS: INR 0.9 (<1.2); Partial Thromboplastin Time 28.8 sec (22.0-30.0); Prothrombin Time 10.2 sec (9.0-12.0)
[2021-06-24 21:32] LABS: Albumin 4.6 g/dL (3.5-5.0); Calcium 9.4 mg/dL (8.4-10.2); Magnesium 1.7 mg/dL (1.6-2.3); Potassium 3.8 mmol/L (3.5-5.1); Total Bilirubin 0.5 mg/dL (0.2-1.3); Total Protein 7.4 g/dL (6.3-8.2)
--- NOTE | 2021-06-24 22:03 | CT ---
EXAMINATION TYPE: CT abdomen pelvis w con DATE OF EXAM: 06/24/2021 COMPARISON: 10/25/2020 HISTORY: abdominal pain and rectal bleeding CT DLP: 632.2 mGycm Automated exposure control for dose reduction was used. CONTRAST: Performed with IV Contrast, patient injected with 80 mL of Isovue 300. The lung bases are clear. No pleural effusion. Heart size is normal. No pericardial effusion. There a re clips from cholecystectomy. There is mild ectasia of the biliary tree. Spleen is intact. Stomach i s intact. There is no pancreatic mass. There is no adrenal mass. Kidneys show satisfactory contrast opacification. There is no hydronephrosi s. Ureters are not dilated. There is no retroperitoneal adenopathy. Bladder distends smoothly. There is no inguinal hernia. No free fluid in the pelvis. There is no mesenteric edema. No ascites or free air. No bowel obstruction. The lumbar vertebrae have normal alignment. Posterior element are intact. No compression fracture. [place] pelvis is intact. The hip joints are intact. Appendix not seen. No sign of thickened appendix. IMPRESSION: Mild ectasia of the biliary tree without change. Cholecystectomy. No acute abnormality of the abdomen and pelvis. No adverse change compared to the old exam.
[2021-06-24] MEDS ORDERED: HYDROmorphone 0.5 MG/0.5 ML SYRINGE IVP STA (22:24)
[2021-06-24 23:29] VITALS: BP 115/60; PULSE 78; TEMP 98.2
== END 2021-06-24 23:28 | disposition home or self-care (01) ==
LOC: EC 15:19
DX: R10.30 Lower abdominal pain, unspecified (principal); F17.200 Nicotine dependence, unspecified, uncomplicated; I10 Essential (primary) hypertension; K21.9 Gastro-esophageal reflux disease without esophagitis; Z88.0 Allergy status to penicillin; Z88.1 Allergy status to other antibiotic agents; Z90.49 Acquired absence of other specified parts of digestive tract; Z79.899 Other long term (current) drug therapy
CPT/HCPCS: 36415; 80053; 83605; 83690; 83735; 85025; 85610; 85730; 74177; 99284; 96374; 96375; 96361; J2270; J1170; Q9967